=== PATIENT | female | born 1965 | race Caucasian/White ===

== ENCOUNTER 2019-07-02 14:09 | Outpatient (CLI) | payer OTHER, SELFPAY | END 2019-07-02 14:10 | disposition home or self-care (01) | LOC: CHSIMG 14:10 | PROVIDERS: PCP Internal Medicine; Visit Provider Internal Medicine | DX: I34.0 Nonrheumatic mitral (valve) insufficiency (principal) | CPT/HCPCS: 93306 ==

== ENCOUNTER 2019-12-08 07:27 | Outpatient (CLI) | payer OTHER, SELFPAY ==
[2019-12-08 07:39] LABS: Add Urine Microscopic? YES; Appearance Urine Sl Cloudy (Clear); Bilirubin Urine Negative (Negative); Blood Urine Negative (Negative); Color Urine Yellow (Yellow); Glucose Urine UA Negative (Negative); Ketones Urine Negative (Negative); Leukocyte Esterase Ur Negative (Negative); Nitrate Urine Positive (Negative); Protein Urine 1+ (Negative); Specific Grav Ur 1.025 (1.010-1.020); Urobilinogen Urine 0.2 mg/dL (0.2-1.0)
[2019-12-08 07:45] LABS: Bacteria Urine 4+ /hpf; RBC Urine None seen /hpf (0-2); Squamous Epithelial Cell Urine Few /hpf (Few); WBC Urine None seen /hpf (0-3)
[2019-12-08 07:47] LABS: Hemoglobin A1C 7.6 % (<5.7)
[2019-12-08 07:59] LABS: MALB Creatinine Ratio 115.7 mg/g (0-30); Microalbumin Urine Random 182.5 mg/L
[2019-12-08 08:55] LABS: Alanine Aminotransferase 40 U/L (14-59); Alkaline Phosphatase 42 U/L (46-116); Anion Gap 12.1 mmol/L (7-16); Aspartate Amino Transferase 23 U/L (15-37); Bilirubin,Total 0.6 mg/dL (0.00-1.00); Blood Urea Nitrogen 17 mg/dL (7-18); Calcium 9.4 mg/dL (8.5-10.1); Carbon Dioxide 30 mmol/L (21-32); Chloride 104 mmol/L (98-108); Cholesterol 156 mg/dL (0-200); Creatine Kinase 150 U/L (26-192); Estimated Glomerular Filt Rate > 60; Glucose 113 mg/dL (70-99); HDL Direct 38 mg/dL (40-60); LDL Cholesterol Calculated 82 mg/dL (<130); Osmolality Calculated 294 mOsm/kg (285-295); Potassium 5.1 mmol/L (3.5-5.1); Sodium 141 mmol/L (136-145); Total Protein 6.5 g/dL (6.4-8.2); Triglycerides 181 mg/dL (0-150)
[2019-12-12 10:29] LABS: Vitamin D 25 Hydroxy 19 ng/mL (30-100)
== END 2019-12-08 07:28 | disposition home or self-care (01) ==
LOC: CHSLAB 07:28
PROVIDERS: PCP Internal Medicine; Visit Provider Internal Medicine
DX: E78.2 Mixed hyperlipidemia (principal); E11.65 Type 2 diabetes mellitus with hyperglycemia; I10 Essential (primary) hypertension; M81.0 Age-related osteoporosis without current pathological fracture
CPT/HCPCS: 36415; 80053; 80061; 81001; 82043; 82306; 82550; 83036

== ENCOUNTER 2020-03-22 14:17 | Outpatient (CLI) | payer OTHER, SELFPAY ==
--- NOTE | ~2020-03-22 | MM_ITS ---
EXAMINATION: MM screening [facility] BI w hayder HISTORY: Screening TECHNIQUE: Craniocaudal and mediolateral oblique 3-D tomosynthesis images were obtained and synthetic 2-D images were generated. CAD analysis was submitted and interpreted. COMPARISON: No prior mammogram is available for comparison at this institution. Comparison to multipl e prior studies sequentially, with oldest reviewed study dated 10/23/2012. BREAST PARENCHYMAL COMPOSITION: There are scattered areas of fibroglandular density. FINDINGS: There is no evidence of suspicious mass, calcification, or architectural distortion to sugg est malignancy in either breast. There has been no suspicious interval change. IMPRESSION: 1. No mammographic evidence of malignancy. 2. Recommend routine screening mammography in one year. BI-RADS Category 1: Negative Reviewed, dictated and finalized at location A. OPERATOR
== END 2020-03-22 14:18 | disposition home or self-care (01) ==
LOC: CHSIMG 14:19
PROVIDERS: PCP Internal Medicine; Visit Provider Internal Medicine
DX: Z12.31 Encounter for screening mammogram for malignant neoplasm of breast (principal)
CPT/HCPCS: 77063; 77067

== ENCOUNTER 2020-06-06 07:28 | Outpatient (CLI) | payer OTHER, SELFPAY ==
[2020-06-06 07:51] LABS: Appearance Urine Clear (Clear); Bilirubin Urine 1+ (Negative); Color Urine Yellow (Yellow); Glucose Urine UA Negative (Negative); Ketones Urine Negative (Negative); Leukocyte Esterase Ur Negative LEU/UL (Negative); Nitrate Urine Negative (Negative); Protein Urine 2+ (Negative); Specific Grav Ur >= 1.030 (1.010-1.020); Urobilinogen Urine 0.2 mg/dL (0.2-1.0); pH Urine 5.5 (5.0-8.0)
[2020-06-06 07:56] LABS: Add Urine Microscopic? YES; Bacteria Urine Trace /hpf; Blood Urine Trace-Intact (Negative); Mucus Urine Few /lpf; RBC Urine 0-2 /hpf (0-2); Squamous Epithelial Cell Urine Few /hpf (Few); WBC Urine None seen /hpf (0-3)
[2020-06-06 08:10] LABS: MALB Creatinine Ratio 98.7 mg/g (0-30); Microalbumin Urine Random 378.8 mg/L
[2020-06-06 08:55] LABS: Alanine Aminotransferase 44 U/L (14-59); Albumin Level 4.1 g/dL (3.4-5.0); Alkaline Phosphatase 48 U/L (46-116); Anion Gap 3 mmol/L (8-16); Aspartate Amino Transferase 21 U/L (15-37); Bilirubin,Total 0.7 mg/dL (0.00-1.00); Blood Urea Nitrogen 15 mg/dL (7-18); Calcium 9.7 mg/dL (8.5-10.1); Carbon Dioxide 32 mmol/L (21-32); Chloride 104 mmol/L (98-108); Cholesterol 191 mg/dL (0-200); Creatine Kinase 121 U/L (26-192); Estimated Glomerular Filt Rate > 60; Glucose 86 mg/dL (70-99); HDL Direct 41 mg/dL (40-60); LDL Cholesterol Calculated 112 mg/dL (<130); Osmolality Calculated 287 mOsm/kg (285-295); Potassium 4.5 mmol/L (3.5-5.1); Sodium 139 mmol/L (136-145); Triglycerides 192 mg/dL (0-150)
[2020-06-09 12:47] LABS: Vitamin D 25 Hydroxy 13 ng/mL (30-100)
== END 2020-06-06 07:29 | disposition home or self-care (01) ==
LOC: CHSLAB 07:31
PROVIDERS: PCP Internal Medicine; Visit Provider Internal Medicine
DX: E11.65 Type 2 diabetes mellitus with hyperglycemia (principal); E78.5 Hyperlipidemia, unspecified; I10 Essential (primary) hypertension; E55.9 Vitamin D deficiency, unspecified
CPT/HCPCS: 36415; 80053; 80061; 81001; 82043; 82306; 82550; 83036

== ENCOUNTER 2020-07-29 15:01 | Outpatient (CLI) | payer OTHER, SELFPAY ==
--- NOTE | ~2020-07-29 | XR_ITS ---
XR_CERV2-3V_CR 07/29/2020 15:33 Indication: Neck pain. Pain in the trapezius muscles. Procedure: 3 views of the cervical spine Comparison: 01/21/2018 Findings: There is mild disc narrowing at C5-6 and C6-7. There is mild uncinate hypertrophy at C5-6 a nd C6-7. Lung apices are normal. No fracture or traumatic malalignment. No prevertebral soft tissue s welling. Odontoid process within normal limits. Impression: 1: Mild cervical spondylosis. Reviewed, dictated and finalized at location A. POWER DEVELOPER Impression: 1: Mild cervical spondylosis.
== END 2020-07-29 15:02 | disposition home or self-care (01) ==
LOC: CHSLAB 15:03
PROVIDERS: PCP Internal Medicine; Visit Provider Internal Medicine
DX: M54.2 Cervicalgia (principal)
CPT/HCPCS: 72040

== ENCOUNTER 2020-08-01 16:18 | Outpatient (CLI) | payer OTHER, SELFPAY ==
--- NOTE | ~2020-08-01 | XR_ITS ---
XR skull min 4V DATE: 08/01/2020 16:54 INDICATION: Sagittal suture deformity TECHNIQUE: 4 views COMPARISON: None FINDINGS: Normal sella turcica. No fracture or bone destruction of the cranial vault. Probable bilateral basal ganglia calcifications. Paranasal sinuses and mastoid air cells appear normally developed and aerated. IMPRESSION: Bilateral intracranial calcifications, likely basal ganglia in location. CT brain scan ca n help to confirm. Reviewed, dictated and finalized at location A. IMPRESSION: Bilateral intracranial calcifications, likely basal ganglia in loca tion. CT brain scan can help to confirm.
== END 2020-08-01 16:19 | disposition home or self-care (01) ==
LOC: CHSIMG 16:21
PROVIDERS: PCP Internal Medicine; Visit Provider Internal Medicine
DX: M95.2 Other acquired deformity of head (principal); M54.2 Cervicalgia
CPT/HCPCS: 70260

== ENCOUNTER 2020-08-03 09:02 | Outpatient (CLI) | payer OTHER, SELFPAY ==
--- NOTE | ~2020-08-03 | MR_ITS ---
EXAMINATION: MR cervical spine wo con DATE: 08/03/2020 10:45 INDICATION: Neck pain. TECHNIQUE: Magnetic resonance imaging (MRI) of the cervical spine was performed without intravenous c ontrast. Sequences included sagittal T2-weighted FSE, sagittal T2-weighted FS FSE, sagittal T1-weight ed FSE, axial MERGE, and axial T2-weighted FSE. COMPARISON: Cervical spine radiographs 07/29/2020 FINDINGS: There is 2 mm retrolisthesis of C5 on C6 and C6 on C7. Vertebral body heights are normal. T here is mildly decreased disc height at C5-C6 and moderately decreased disc height at C6-C7. The spin al cord signal intensity is normal. The following disc levels are specifically discussed: C2-C3: The disc does not extend beyond the endplate margin. There is no uncovertebral joint osteoarth ritis. There is moderate right and severe left facet joint osteoarthritis. There is mild left neural foraminal stenosis. There is no central canal stenosis. C3-C4: The disc does not extend beyond the endplate margin. There is no uncovertebral joint osteoarth ritis. There is mild bilateral facet joint osteoarthritis. There is no neural foraminal stenosis. The re is no central canal stenosis. C4-C5: The disc does not extend beyond the endplate margin. There is mild right and severe left uncov ertebral joint osteoarthritis. There is mild bilateral facet joint osteoarthritis. There is mild left neural foraminal stenosis. There is no central canal stenosis. C5-C6: The disc is bulging. There is severe bilateral uncovertebral joint osteoarthritis. There is no facet joint osteoarthritis. There is mild right and moderate left neural foraminal stenosis. There i s mild central canal stenosis. C6-C7: The disc is bulging. There is severe bilateral uncovertebral joint osteoarthritis. There is mi ld bilateral facet joint osteoarthritis. There is mild bilateral neural foraminal stenosis. There is mild central canal stenosis. C7-T1: The disc does not extend beyond the endplate margin. There is no uncovertebral joint osteoarth ritis. There is severe right and mild left facet joint osteoarthritis. There is mild right neural for aminal stenosis. There is no central canal stenosis. IMPRESSION: 1. Moderate cervical spondylosis. Reviewed, dictated and finalized at location A.
== END 2020-08-03 09:03 | disposition home or self-care (01) ==
LOC: CHSIMG 09:04
PROVIDERS: PCP Internal Medicine; Visit Provider Internal Medicine
DX: M54.2 Cervicalgia (principal)
CPT/HCPCS: 72141

== ENCOUNTER 2020-12-30 07:09 | Outpatient (CLI) | payer OTHER, SELFPAY ==
[2020-12-30 07:29] LABS: Add Urine Microscopic? YES; Appearance Urine Sl Cloudy (Clear); Bilirubin Urine Negative (Negative); Blood Urine Negative (Negative); Color Urine Yellow (Yellow); Glucose Urine UA 2+ (Negative); Ketones Urine Negative (Negative); Leukocyte Esterase Ur Negative LEU/UL (Negative); Nitrate Urine Positive (Negative); Protein Urine 1+ (Negative); Specific Grav Ur 1.025 (1.010-1.020); Urobilinogen Urine 0.2 mg/dL (0.2-1.0); pH Urine 5.5 (5.0-8.0)
[2020-12-30 07:35] LABS: Bacteria Urine 4+ /hpf; RBC Urine None seen /hpf (0-2); Squamous Epithelial Cell Urine Few /hpf (Few); WBC Urine 0-3 /hpf (0-3)
[2020-12-30 07:40] LABS: Hemoglobin A1C 7.7 % (<5.7)
[2020-12-30 07:45] LABS: Creatinine Urine 127.85 mg/dL (40-278)
[2020-12-30 07:47] LABS: MALB Creatinine Ratio 173.6 mg/g (0-30)
[2020-12-30 08:22] LABS: Alanine Aminotransferase 38 U/L (14-59); Albumin Level 4.1 g/dL (3.4-5.0); Alkaline Phosphatase 59 U/L (46-116); Anion Gap 8 mmol/L (8-16); Aspartate Amino Transferase 17 U/L (15-37); Bilirubin,Total 0.7 mg/dL (0.00-1.00); Blood Urea Nitrogen 21 mg/dL (7-18); Calcium 9.4 mg/dL (8.5-10.1); Carbon Dioxide 29 mmol/L (21-32); Chloride 106 mmol/L (98-108); Cholesterol 157 mg/dL (0-200); Creatine Kinase 106 U/L (26-192); Estimated Glomerular Filt Rate > 60; Glucose 141 mg/dL (70-99); HDL Direct 36 mg/dL (40-60); LDL Cholesterol Calculated 81 mg/dL (<130); Osmolality Calculated 301 mOsm/kg (285-295); Potassium 4.7 mmol/L (3.5-5.1); Sodium 143 mmol/L (136-145); Total Protein 7.1 g/dL (6.4-8.2); Triglycerides 198 mg/dL (0-150)
[2021-01-02 14:47] LABS: Vitamin D 25 Hydroxy 15 ng/mL (30-100)
== END 2020-12-30 07:10 | disposition home or self-care (01) ==
LOC: CHSLAB 07:11
PROVIDERS: PCP Internal Medicine; Visit Provider Internal Medicine
DX: E11.65 Type 2 diabetes mellitus with hyperglycemia (principal); E78.5 Hyperlipidemia, unspecified; I10 Essential (primary) hypertension; D50.9 Iron deficiency anemia, unspecified; R82.90 Unspecified abnormal findings in urine
CPT/HCPCS: 36415; 80053; 80061; 81001; 82043; 82306; 82550; 83036; 87077; 87086; 87088; 87186

== ENCOUNTER 2021-01-28 09:08 | Outpatient (CLI) | payer OTHER, SELFPAY ==
--- NOTE | ~2021-01-28 | MR_ITS ---
EXAMINATION: MR brain/brain stem wo/w con EXAM DATE: 01/28/2021 10:03 INDICATION: Headache. [place] that appears on head periodically. Skull deformity. TECHNIQUE: Magnetic resonance imaging (MRI) of the brain/brain stem obtained without contrast. Sagit stormy T1, axial diffusion, gradient echo (T2*), T1, T2, FLAIR sequences obtained. Patient was then inj ected with 10 cc intravenous Multihance contrast. Axial and coronal postcontrast T1 weighted sequence s obtained. There is no prior study for comparison. FINDINGS: There is symmetric signal abnormality in the caudate, basal ganglia and thalamus, with incr ease in T1 signal, susceptibility on gradient echo sequence. No edema or restricted diffusion within this. Most likely toxic/metabolic deposition etiology, could be calcium, copper or magnesium. Some po ssible underlying etiologies include parathyroid disorder (hypoparathyroidism), Enoch disease, liver failure. There are no areas of restricted diffusion to suggest acute infarction. There is no acute hemorrhage seen on the T2*, a hemosiderin sensitive sequence. No intraparenchymal brain mass. The ventricles a re normal in size. There are no extra-axial collections. Flow voids are seen in the cerebral arteri es on the T2-weighted sequences consistent with their expected patency. The orbits are unremarkable. Soft tissue is unremarkable. IMPRESSION: Symmetric abnormal signal in the caudate, basal ganglia, thalami. Some differential consi derations above. No acute findings. Reviewed, dictated and finalized at location A. IMPRESSION: Symmetric abnormal signal in the caudate, basal ganglia, thalami. S ome differential considerations above. No acute findings.
== END 2021-01-28 09:09 | disposition home or self-care (01) ==
LOC: CHSIMG 09:10
PROVIDERS: PCP Internal Medicine; Visit Provider Internal Medicine
DX: R51.9 Headache, unspecified (principal)
CPT/HCPCS: 70553; A9577

== ENCOUNTER 2021-02-02 11:17 | Outpatient (CLI) | payer OTHER, SELFPAY ==
[2021-02-02 11:38] LABS: Basophils Absolute Auto 0.05 K/mm3 (0.00-0.10); Basophils Percent Auto 0.8 % (0.0-1.0); Eosinophils Absolute Auto 0.19 K/mm3 (0.02-0.50); Eosinophils Percent Auto 3.2 % (1.0-6.0); Hematocrit 45.6 % (35.0-49.0); Hemoglobin 15.4 g/dL (12.0-15.0); Immature Granulocyte Absolute 0.01 K/mm3 (0.00-0.00); Immature Granulocyte Percent A 0.2 % (0.0-0.0); Lymphocytes Absolute Auto 2.47 K/mm3 (1.10-4.50); Mean Corpuscular HGB Conc 33.8 g/dL (32.0-36.0); Mean Corpuscular Hemoglobin 30.2 pg (27.0-31.0); Mean Corpuscular Volume 89.4 fL (78.0-102.0); Mean Platelet Volume 9.7 fl (9.2-11.8); Monocytes Absolute Auto 0.38 K/mm3 (0.10-0.90); Monocytes Percent Auto 6.3 % (2.0-11.0); Neutrophils Absolute Auto 2.9 K/mm3 (1.7-7.2); Neutrophils Percent Auto 48.5 % (50.0-70.0); Platelet Count Result 221 K/mm3 (150-420); Red Cell Distribution Width 12.2 % (11.6-14.4)
[2021-02-02 12:38] LABS: Erythrocyte Sedimentation Rate 8 mm/hr (0-20)
[2021-02-02 13:05] LABS: Free T4 Free Thyroxine 0.76 ng/dL (0.76-1.46); Magnesium 1.5 mg/dL (1.8-2.4); Thyroid Stimulating Hormone 1.01 uIU/mL (0.36-3.74)
[2021-02-02 13:08] LABS: CRP < 0.2 mg/dL (0.0-0.9)
[2021-02-05 01:18] LABS: Ionized Calcium 5.2 mg/dL (4.8-5.6)
[2021-02-05 13:32] LABS: Ceruloplasmin 28 mg/dL (18-53)
[2021-02-06 19:16] LABS: Parathyroid Intact 50 pg/mL (14-64)
== END 2021-02-02 11:18 | disposition home or self-care (01) ==
LOC: CHSLAB 11:18
PROVIDERS: PCP Internal Medicine; Visit Provider Internal Medicine
DX: R51.9 Headache, unspecified (principal); R93.0 Abnormal findings on diagnostic imaging of skull and head, not elsewhere classified
CPT/HCPCS: 36415; 82330; 82390; 82525; 83735; 83970; 84439; 84443; 84481; 85025; 85652; 86038; 86140

== ENCOUNTER 2021-03-24 14:15 | Outpatient (CLI) | payer OTHER, SELFPAY ==
--- NOTE | ~2021-03-24 | MM_ITS ---
EXAMINATION: MM screening [facility] BI w hayder HISTORY: Screening TECHNIQUE: Craniocaudal and mediolateral oblique 3-D tomosynthesis images were obtained and synthetic 2-D images were generated. CAD analysis was submitted and interpreted. COMPARISON: Comparison to multiple prior studies sequentially, with oldest reviewed study dated 10/2012. BREAST PARENCHYMAL COMPOSITION: There are scattered areas of fibroglandular density. FINDINGS: There is no evidence of suspicious mass, calcification, or architectural distortion to sugg est malignancy in either breast. There has been no suspicious interval change. IMPRESSION: 1. No mammographic evidence of malignancy. 2. Recommend routine screening mammography in one year. BI-RADS Category 1: Negative Reviewed, dictated and finalized at location A.
== END 2021-03-24 14:16 | disposition home or self-care (01) ==
LOC: CHSIMG 14:15
PROVIDERS: PCP Internal Medicine; Visit Provider Internal Medicine
DX: Z12.31 Encounter for screening mammogram for malignant neoplasm of breast (principal)
CPT/HCPCS: 77063; 77067

== ENCOUNTER 2021-07-07 07:54 | Outpatient (CLI) | payer OTHER, SELFPAY ==
[2021-07-07 08:09] LABS: Basophils Absolute Auto 0.06 K/mm3 (0.00-0.10); Basophils Percent Auto 1.1 % (0.0-1.0); Eosinophils Absolute Auto 0.17 K/mm3 (0.02-0.50); Eosinophils Percent Auto 3.1 % (1.0-6.0); Hematocrit 39.8 % (35.0-49.0); Hemoglobin 13.7 g/dL (12.0-15.0); Immature Granulocyte Absolute 0.02 K/mm3 (0.00-0.00); Immature Granulocyte Percent A 0.4 % (0.0-0.0); Lymphocytes Percent Auto 40.1 % (18.0-42.0); Mean Corpuscular HGB Conc 34.4 g/dL (32.0-36.0); Mean Corpuscular Hemoglobin 30.4 pg (27.0-31.0); Mean Corpuscular Volume 88.2 fL (78.0-102.0); Mean Platelet Volume 9.6 fl (9.2-11.8); Monocytes Absolute Auto 0.47 K/mm3 (0.10-0.90); Monocytes Percent Auto 8.6 % (2.0-11.0); Neutrophils Absolute Auto 2.6 K/mm3 (1.7-7.2); Neutrophils Percent Auto 46.7 % (50.0-70.0); Platelet Count Result 227 K/mm3 (150-420); Red Blood Count 4.51 M/mm3 (4.20-5.40); Red Cell Distribution Width 12.3 % (11.6-14.4); White Blood Count 5.5 K/mm3 (4.8-10.8)
[2021-07-07 08:24] LABS: Hemoglobin A1C 8.4 % (<5.7)
[2021-07-07 08:41] LABS: Alanine Aminotransferase 82 U/L (14-59); Alkaline Phosphatase 50 U/L (46-116); Anion Gap 6 mmol/L (8-16); Aspartate Amino Transferase 39 U/L (15-37); Bilirubin,Total 0.6 mg/dL (0.00-1.00); Blood Urea Nitrogen 15 mg/dL (7-18); Calcium 9.5 mg/dL (8.5-10.1); Carbon Dioxide 31 mmol/L (21-32); Chloride 101 mmol/L (98-108); Cholesterol 126 mg/dL (0-200); Creatine Kinase 129 U/L (26-192); Estimated Glomerular Filt Rate > 60; Glucose 165 mg/dL (70-99); HDL Direct 40 mg/dL (40-60); LDL Cholesterol Calculated 59 mg/dL (<130); Osmolality Calculated 290 mOsm/kg (285-295); Potassium 4.9 mmol/L (3.5-5.1); Sodium 138 mmol/L (136-145); Total Protein 6.7 g/dL (6.4-8.2); Triglycerides 137 mg/dL (0-150)
[2021-07-07 08:52] LABS: Creatinine Urine 19.11 mg/dL (40-278); MALB Creatinine Ratio 267.9 mg/g (0-30); Microalbumin Urine Random 51.2 mg/L
[2021-07-07 08:54] LABS: Add Urine Microscopic? YES; Appearance Urine Clear (Clear); Bilirubin Urine Negative (Negative); Blood Urine Trace-Intact (Negative); Color Urine Light Yellow (Yellow); Glucose Urine UA Negative (Negative); Ketones Urine Negative (Negative); Leukocyte Esterase Ur Trace LEU/UL (Negative); Nitrate Urine Negative (Negative); Protein Urine Negative (Negative); Specific Grav Ur <= 1.005 (1.010-1.020); Squamous Epithelial Cell Urine Rare /hpf (Few); Urobilinogen Urine 0.2 mg/dL (0.2-1.0); pH Urine 5.5 (5.0-8.0)
[2021-07-07 08:55] LABS: Bacteria Urine 1+ /hpf
[2021-07-12 13:46] LABS: Vitamin D 25 Hydroxy 64 ng/mL (30-100)
== END 2021-07-07 07:55 | disposition home or self-care (01) ==
LOC: CHSLAB 07:56
PROVIDERS: PCP Internal Medicine; Visit Provider Internal Medicine
DX: E78.5 Hyperlipidemia, unspecified (principal); I10 Essential (primary) hypertension; E11.65 Type 2 diabetes mellitus with hyperglycemia; N39.0 Urinary tract infection, site not specified; E55.9 Vitamin D deficiency, unspecified
CPT/HCPCS: 36415; 80053; 80061; 81001; 82043; 82306; 82550; 83036; 85025

== ENCOUNTER 2021-08-16 13:07 | Outpatient (CLI) | payer OTHER, SELFPAY ==
--- NOTE | ~2021-08-16 | XR_ITS ---
XR sinus min 3V DATE: 08/16/2021 13:29 INDICATION: Recurrent sinus infections. Pain and pressure over the sinuses. TECHNIQUE: inés Jhaveri, submental vertical and lateral views COMPARISON: None FINDINGS: The paranasal sinuses are normally developed and aerated. The mastoid air cells appear norm al. IMPRESSION: No significant abnormality Reviewed, dictated and finalized at location A. IMPRESSION: No significant abnormality
== END 2021-08-16 13:08 | disposition home or self-care (01) ==
LOC: CHSIMG 13:09
PROVIDERS: PCP Internal Medicine; Visit Provider Nurse Practitioner Family
DX: J32.9 Chronic sinusitis, unspecified (principal)
CPT/HCPCS: 70220

== ENCOUNTER 2021-11-16 14:44 | Outpatient (CLI) | payer OTHER, SELFPAY ==
--- NOTE | ~2021-11-16 | US_ITS ---
EXAMINATION: US carotid duplex BI DATE: 11/16/2021 15:24 INDICATION: Carotid stenosis TECHNIQUE: Grayscale, color Doppler, and pulsed Doppler images of the cervical carotid arteries were obtained. The degree of vessel stenosis is placed in one of the following categories: normal, <50%, 5 0-69%, >=70% but less than near-occlusion, near-occlusion, or total occlusion. Note that percent sten osis relative to normal distal artery lumen diameter is indirectly measured from velocity measurement s as described by Nic, et al. Radiology 2003; 229:340-346. Notes: Normal: Peak systolic velocity <125 centimeters/sec and no plaque <50%. Peak systolic velocity <125 ( EDV <40; ICA/CCA PSV ratio <2.0; used these factors only a tandem lesions or low cardiac output or co ntralateral disease) 50-69 %: PSV 125-230 (EDV 40-100; ratio 2-4) >= 70% but less than near occlusion: PSV greater than 230 (EDV > 100; ratio> 4.0) Near Occlusion: PSV that is variable; markedly narrowed lumen Occlusion: Absent flow on color/spectral Doppler and no lumen on howell scale. COMPARISON: None. FINDINGS: RIGHT: The right common carotid artery (CCA) peak systolic velocity (PSV) is 86 cm/s. The right internal car otid artery (ICA) PSV is 100 cm/s. The right ICA end-diastolic velocity (EDV) is 50 cm/s. The right I CA/CCA PSV ratio is 1.2. The external carotid artery (ECA) PSV is 88 cm/s. There is antegrade flow in the right vertebral artery. LEFT: The left CCA PSV is 97 cm/s. The left ICA PSV is 132 cm/s. The left ICA EDV is 59 cm/s. The left ICA/ CCA PSV ratio is 1.4. The ECA PSV is 74 cm/s. There is antegrade flow in the left vertebral artery. IMPRESSION: 1. Less than 50% stenosis in the right internal carotid artery by sonographic criteria. 2. 50-69% stenosis in the left internal carotid artery by sonographic criteria. Reviewed, dictated and finalized at location A. IMPRESSION: 1. Less than 50% stenosis in the right internal carotid artery by sonographic c lingeria. 2. 50-69% stenosis in the left internal carotid artery by sonographic criteria.
== END 2021-11-16 14:45 | disposition home or self-care (01) ==
LOC: CHSIMG 14:45
PROVIDERS: PCP Internal Medicine; Visit Provider Internal Medicine
DX: I65.29 Occlusion and stenosis of unspecified carotid artery (principal)
CPT/HCPCS: 93880

== ENCOUNTER 2022-02-20 07:20 | Outpatient (CLI) | payer OTHER, SELFPAY ==
[2022-02-20 07:40] LABS: Add Urine Microscopic? YES; Appearance Urine Clear (Clear); Basophils Absolute Auto 0.04 K/mm3 (0.00-0.10); Basophils Percent Auto 0.6 % (0.0-1.0); Bilirubin Urine Negative (Negative); Blood Urine Negative (Negative); Color Urine Yellow (Yellow); Eosinophils Absolute Auto 0.22 K/mm3 (0.02-0.50); Eosinophils Percent Auto 3.5 % (1.0-6.0); Glucose Urine UA 1+ (Negative); Hematocrit 42.9 % (35.0-49.0); Immature Granulocyte Absolute 0.03 K/mm3 (0.00-0.00); Immature Granulocyte Percent A 0.5 % (0.0-0.0); Ketones Urine Negative (Negative); Leukocyte Esterase Ur Negative LEU/UL (Negative); Lymphocytes Absolute Auto 2.43 K/mm3 (1.10-4.50); Lymphocytes Percent Auto 38.4 % (18.0-42.0); Mean Corpuscular HGB Conc 32.6 g/dL (32.0-36.0); Mean Corpuscular Hemoglobin 29.6 pg (27.0-31.0); Mean Corpuscular Volume 90.7 fL (78.0-102.0); Mean Platelet Volume 9.7 fl (9.2-11.8); Monocytes Absolute Auto 0.53 K/mm3 (0.10-0.90); Monocytes Percent Auto 8.4 % (2.0-11.0); Neutrophils Absolute Auto 3.1 K/mm3 (1.7-7.2); Neutrophils Percent Auto 48.6 % (50.0-70.0); Nitrate Urine Positive (Negative); Platelet Count Result 218 K/mm3 (150-420); Protein Urine Trace (Negative); Red Blood Count 4.73 M/mm3 (4.20-5.40); Red Cell Distribution Width 13.2 % (11.6-14.4); Specific Grav Ur 1.025 (1.010-1.020); Urobilinogen Urine 0.2 mg/dL (0.2-1.0); White Blood Count 6.3 K/mm3 (4.8-10.8)
[2022-02-20 08:08] LABS: Bacteria Urine 3+ /hpf; RBC Urine None seen /hpf (0-2); Squamous Epithelial Cell Urine Moderate /hpf (Few); WBC Urine 0-3 /hpf (0-3)
[2022-02-20 08:25] LABS: Hemoglobin A1C 7.5 % (<5.7)
[2022-02-20 08:30] LABS: Creatinine Urine 137.22 mg/dL (40-278)
[2022-02-20 08:35] LABS: MALB Creatinine Ratio 105.7 mg/g (0-30); Microalbumin Urine Random 145.1 mg/L
[2022-02-20 08:43] LABS: Alanine Aminotransferase 44 U/L (14-59); Alkaline Phosphatase 56 U/L (46-116); Anion Gap 6 mmol/L (8-16); Aspartate Amino Transferase 17 U/L (15-37); Bilirubin,Total 0.7 mg/dL (0.00-1.00); Blood Urea Nitrogen 21 mg/dL (7-18); Calcium 9.7 mg/dL (8.5-10.1); Carbon Dioxide 30 mmol/L (21-32); Chloride 102 mmol/L (98-108); Cholesterol 156 mg/dL (0-200); Creatine Kinase 130 U/L (26-192); Estimated Glomerular Filt Rate > 60; Glucose 269 mg/dL (70-99); HDL Direct 39 mg/dL (40-60); LDL Cholesterol Calculated 76 mg/dL (<130); Osmolality Calculated 298 mOsm/kg (285-295); Potassium 5.4 mmol/L (3.5-5.1); Sodium 138 mmol/L (136-145); Total Protein 6.5 g/dL (6.4-8.2); Triglycerides 207 mg/dL (0-150)
== END 2022-02-20 07:21 | disposition home or self-care (01) ==
LOC: CHSLAB 07:23
PROVIDERS: PCP Internal Medicine; Visit Provider Internal Medicine
DX: E78.2 Mixed hyperlipidemia (principal); I10 Essential (primary) hypertension; N39.0 Urinary tract infection, site not specified; E11.65 Type 2 diabetes mellitus with hyperglycemia
CPT/HCPCS: 36415; 80053; 80061; 81001; 82043; 82550; 83036; 85025; 87077; 87086; 87088; 87186

== ENCOUNTER 2022-03-06 15:34 | Outpatient (CLI) | payer OTHER, SELFPAY ==
[2022-03-06 15:45] LABS: Add Urine Microscopic? NO; Appearance Urine Clear (Clear); Bilirubin Urine Negative (Negative); Blood Urine Negative (Negative); Color Urine Yellow (Yellow); Glucose Urine UA Negative (Negative); Ketones Urine Negative (Negative); Leukocyte Esterase Ur Negative LEU/UL (Negative); Nitrate Urine Negative (Negative); Protein Urine Negative (Negative); Urobilinogen Urine 0.2 mg/dL (0.2-1.0)
== END 2022-03-06 15:35 | disposition home or self-care (01) ==
LOC: CHSLAB 15:36
PROVIDERS: PCP Internal Medicine; Visit Provider Internal Medicine
DX: N39.0 Urinary tract infection, site not specified (principal)
CPT/HCPCS: 81003

== ENCOUNTER 2022-05-03 12:38 | Outpatient (CLI) | payer OTHER, SELFPAY ==
--- NOTE | ~2022-05-03 | US_ITS ---
EXAMINATION: US carotid duplex BI DATE: 05/03/2022 13:21 INDICATION: Carotid stenosis TECHNIQUE: Grayscale, color Doppler, and pulsed Doppler images of the cervical carotid arteries were obtained. The degree of vessel stenosis is placed in one of the following categories: normal, <50%, 5 0-69%, >=70% but less than near-occlusion, near-occlusion, or total occlusion. Note that percent sten osis relative to normal distal artery lumen diameter is indirectly measured from velocity measurement s as described by Nic, et al. Radiology 2003; 229:340-346. COMPARISON: None. FINDINGS: RIGHT: The right common carotid artery (CCA) peak systolic velocity (PSV) is 83 cm/s. The right internal car otid artery (ICA) PSV is 89 cm/s. The right ICA end-diastolic velocity (EDV) is 44 cm/s. The right IC A/CCA PSV ratio is 1.1. Grayscale and color Doppler images yield an estimate of <50% diameter reducti on from plaque in the ICA. The external carotid artery (ECA) PSV is 92 cm/s. There is antegrade flow in the right vertebral artery. LEFT: The left CCA PSV is 89 cm/s. The left ICA PSV is 86 cm/s. The left ICA EDV is 39 cm/s. The left ICA/C CA PSV ratio is 1.0. Grayscale and color Doppler images yield an estimate of <50% diameter reduction from plaque in the ICA. The ECA PSV is 75 cm/s. There is antegrade flow in the left vertebral artery. IMPRESSION: 1. <50% stenosis in the right internal carotid artery. 2. <50% stenosis in the left internal carotid artery. Reviewed, dictated and finalized at location A. OGICAL PLANT OPERATOR
--- NOTE | ~2022-05-03 | MM_ITS ---
EXAMINATION: MM screening [facility]uz [facility] BI w hayder HISTORY: Screening TECHNIQUE: Craniocaudal and mediolateral oblique 3-D tomosynthesis images were obtained and synthetic 2-D images were generated. CAD analysis was submitted and interpreted. COMPARISON: Comparison to multiple prior studies sequentially, with oldest reviewed study dated 10/2012. BREAST PARENCHYMAL COMPOSITION: There are scattered areas of fibroglandular density. FINDINGS: There is no evidence of suspicious mass, calcification, or architectural distortion to sugg est malignancy in either breast. There has been no suspicious interval change. IMPRESSION: 1. No mammographic evidence of malignancy. 2. Recommend routine screening mammography in one year. BI-RADS Category 1: Negative Reviewed, dictated and finalized at location B. ERADICATOR
== END 2022-05-03 12:39 | disposition home or self-care (01) ==
LOC: CHSIMG 12:40
PROVIDERS: PCP Internal Medicine; Visit Provider Internal Medicine
DX: I65.23 Occlusion and stenosis of bilateral carotid arteries (principal); Z12.31 Encounter for screening mammogram for malignant neoplasm of breast
CPT/HCPCS: 77063; 77067; 93880

== ENCOUNTER 2022-05-07 13:14 | Outpatient (CLI) | payer OTHER, SELFPAY ==
--- NOTE | ~2022-05-07 | CT_ITS ---
EXAMINATION: CT lung screening DATE: 05/07/2022 13:34 INDICATION: history of nicotine dependence TECHNIQUE: Computed tomography (CT) of the chest was performed without intravenous contrast. Addition al 3D reconstructions utilizing coronal maximum intensity projection (MIP) were performed. Automated exposure control and iterative reconstruction technique were employed. The dose-length product was 14 6.64 mGy-cm. COMPARISON: None FINDINGS: 2 mm left upper lobe nodule on image 27 and a couple 1 mm nodules at the left apex on images 10 and 1 2. No pneumonia, pulmonary edema or pleural effusion. Heart size is normal. Small amount of atheroscl erotic coronary artery calcific location. No pericardial effusion. Thoracic aorta is normal in calibe r. No pathologically enlarged thoracic lymphadenopathy. Diffuse hepatic steatosis. Multiple calcified gallstones in the decompressed gallbladder. 1.4 cm low-attenuation left adrenal adenoma. Mild thorac ic spondylosis. IMPRESSION: 1. Lung-RADS category 2: Benign appearance or behavior. Continue annual screening with noncontrast lo w-dose chest CT in 12 months. 2. Cholelithiasis. 3. Diffuse hepatic steatosis. Reviewed, dictated and finalized at location B. T PUMPER IMPRESSION: 1. Lung-RADS category 2: Benign appearance or behavior. Continue annual screeni ng with noncontrast low-dose chest CT in 12 months. 2. Cholelithiasis. 3. Diffuse hepatic steatosis.
== END 2022-05-07 13:15 | disposition home or self-care (01) ==
LOC: CHSIMG 13:17
PROVIDERS: PCP Internal Medicine; Visit Provider Internal Medicine
DX: Z12.2 Encounter for screening for malignant neoplasm of respiratory organs (principal); Z87.891 Personal history of nicotine dependence; K80.20 Calculus of gallbladder without cholecystitis without obstruction; K76.0 Fatty (change of) liver, not elsewhere classified
CPT/HCPCS: 71271

== ENCOUNTER 2022-05-28 16:20 | Outpatient (CLI) | payer OTHER, BC, SELFPAY ==
--- NOTE | ~2022-05-28 | XR_ITS ---
EXAMINATION: XR lumbar spine 2-3V DATE: 05/28/2022 16:43 INDICATION: Low back pain TECHNIQUE: Anteroposterior and lateral views of the lumbar spine, and cone-down lateral view of the l umbosacral junction were obtained. COMPARISON: None. FINDINGS: Bone alignment is normal. There is no fracture. The vertebral body heights are maintained. There is mild loss of intervertebral disc space height at L4-5 and L5-S1. Mild facet joint osteoarthr itis is noted at L5-S1. Small degenerative osteophytes project from the anterior endplates of multipl e vertebral bodies. Calcified atherosclerosis of the aorta is noted. There are multiple phleboliths o f the pelvis. IMPRESSION: 1. Mild lumbar spondylosis without acute findings. Reviewed, dictated and finalized at location L. EILLANCE SUPERVISOR
== END 2022-05-28 16:21 | disposition home or self-care (01) ==
LOC: CHSIMG 16:24
PROVIDERS: PCP Internal Medicine; Visit Provider Internal Medicine
DX: M54.50 Low back pain, unspecified (principal); M43.06 Spondylolysis, lumbar region
CPT/HCPCS: 72100

== ENCOUNTER 2022-06-02 10:53 | Outpatient (CLI) | payer BC, OTHER, SELFPAY ==
--- NOTE | ~2022-06-02 | MR_ITS ---
MRI of the lumbar spine Clinical History: Back pain Technique: Axial T2-weighted images, and sagittal T1-weighted, T2-weighted, and T2 fat-sat images wer e acquired. Findings: There is no fracture or subluxation of the lumbar spine. Vertebral bodies maintain normal h eight and line. No bone marrow signal abnormality identified. No disc bulge or herniation seen at any lumbar level. There are minimal facet joint degenerative lew ges. No spinal canal stenosis or neural foraminal narrowing at any lumbar level. Paravertebral soft tissues are unremarkable. Impression: Minimal facet joint degenerative changes, otherwise unremarkable exam. Reviewed, dictated and finalized at location . MANAGER Impression: Minimal facet joint degenerative changes, otherwise unremarkable exam.
== END 2022-06-02 10:54 | disposition home or self-care (01) ==
LOC: CHSIMG 10:55
PROVIDERS: PCP Internal Medicine; Visit Provider Internal Medicine
DX: M54.50 Low back pain, unspecified (principal)
CPT/HCPCS: 72148

== ENCOUNTER 2022-06-28 08:50 | Outpatient (CLI) | payer BC, OTHER, SELFPAY ==
--- NOTE | 2022-06-28 11:00 | NEURO_ITS ---
Impression: # Insulin dependent diabetic complains of lower extremity pain and difficulties walking. 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 # Needle/EMG exam reveals early neurogenic changes. # Clinical correlation recommended. Motor Nerve Conduction Lower Extremities Peroneal Nerve Conduction Velocity (m/sec) Terminal Latency (msec) Response Voltage(mV) Popliteal space-Ankle Ankle Extensor Dig Brevis Popliteal space Ankle Right 40 4.8 2 2 Left 43 4.7 1 1 Tibial Nerve Conduction Velocity (m/sec) Terminal Latency (msec) Response Voltage(mV) Popliteal space-Ankle Ankle-Extensor Dig Brevis Popliteal space Ankle Right 40 5.0 2 3 Left 40 4.8 1 1 F-waves Peroneal Nerve (ms) Tibial Nerve (ms) Right 58.4 59.5 Left 60.5 61.4 Sensory Nerve Conduction Lower Extremities Sural Nerve Stimulation Terminal Latency (msec) Ankle Response Voltage (uV) Ankle Response Velocity (m/sec) Right 4.7 21 34 Left 4.6 13 35 Superficial Peroneal Nerve Stimulation Terminal Latency (msec) Ankle Response Voltage (uV) Ankle Response Velocity (m/sec) Right 56 4 29 Left 4.1 14 39 Left Right Muscles Examined Fibrillation Fasciculation Scarcity Voltage Duration Left Right Left Right Left Right Left Right Left Right X X Ant Tibialis Reduced Reduced Incr Incr >12ms >12ms X X Gastroc X X Fibularis Long X X Flex Dig Long X X Ext Dig Brev Reduced Reduced Incr Incr >12ms >12ms Abd Hallucis X X Quadriceps Reduced Reduced Incr Incr >12ms >12ms Paraspinals MTDD
== END 2022-06-28 08:51 | disposition home or self-care (01) ==
LOC: ANHNEURO 08:52
PROVIDERS: PCP Internal Medicine; Visit Provider Internal Medicine
DX: G62.9 Polyneuropathy, unspecified (principal); R94.131 Abnormal electromyogram [EMG]
CPT/HCPCS: 95886; 95910

== ENCOUNTER 2023-07-03 14:46 | Outpatient (CLI) | payer OTHER, SELFPAY ==
--- NOTE | ~2023-07-03 | MM_ITS ---
EXAMINATION: MM screening [facility] BI w hayder HISTORY: Screening mammogram TECHNIQUE: Craniocaudal and mediolateral oblique 3-D tomosynthesis images were obtained and synthetic 2-D images were generated. CAD analysis was submitted and interpreted. COMPARISON: 05/03/2022, 03/24/2021, 03/22/2020 BREAST PARENCHYMAL COMPOSITION: There are scattered areas of fibroglandular density. FINDINGS: No suspicious mass, calcification, or architectural distortion are identified in either brad ast to suggest malignancy. There has been no suspicious interval change. IMPRESSION: 1. No mammographic evidence of malignancy. 2. Recommend routine screening mammography in one year. BI-RADS Category 1: Negative Reviewed, dictated and finalized at location A. CE SUPPORT
== END 2023-07-03 14:47 | disposition home or self-care (01) ==
LOC: CHSIMG 14:47
PROVIDERS: PCP Internal Medicine; Visit Provider Internal Medicine
DX: Z12.31 Encounter for screening mammogram for malignant neoplasm of breast (principal)
CPT/HCPCS: 77063; 77067

== ENCOUNTER 2023-08-09 15:32 | Outpatient (CLI) | payer OTHER, SELFPAY ==
--- NOTE | ~2023-08-09 | XR_ITS ---
XR elbow LT min 3V DATE: 08/09/2023 16:03 INDICATION: Medial left elbow pain for one month TECHNIQUE: 3 views COMPARISON: None FINDINGS: No fracture or dislocation or joint effusion, periosteal reaction or bone destruction. IMPRESSION: No significant abnormality Reviewed, dictated and finalized at location B. IMPRESSION: No significant abnormality
--- NOTE | ~2023-08-09 | CT_ITS ---
EXAMINATION: CT lung screening DATE: 08/09/2023 16:02 INDICATION: Personal history of nicotine dependence TECHNIQUE: Computed tomography (CT) of the chest was performed without intravenous contrast. The dose -length product was 129.75 mGy-cm. Automated exposure control and iterative reconstruction technique were employed. COMPARISON: CT dated 05/07/2022 FINDINGS: Heart size normal. No significant pleural or pericardial effusion. There are gallstones. No thoracic lymphadenopathy. Mild atherosclerosis. Stable low-density left adrenal mass measuring 1.5 c m, consistent with adenoma. No endobronchial lesions. Stable small upper lobe nodules measuring 2 mm or less. No focal airspace consolidation. No endobronchial lesions. No pneumothorax. No focal lytic o r blastic lesions. No acute osseous abnormality. IMPRESSION: 1. Lung-RADS category 2: Benign appearance or behavior. Continue annual screening with noncontrast lo w-dose chest CT in 12 months. Reviewed, dictated and finalized at location A. IMPRESSION: 1. Lung-RADS category 2: Benign appearance or behavior. Continue annual screeni ng with noncontrast low-dose chest CT in 12 months.
== END 2023-08-09 15:33 | disposition home or self-care (01) ==
LOC: CHSIMG 15:34
PROVIDERS: PCP Internal Medicine; Visit Provider Internal Medicine
DX: Z12.2 Encounter for screening for malignant neoplasm of respiratory organs (principal); Z87.891 Personal history of nicotine dependence; M25.522 Pain in left elbow
CPT/HCPCS: 71271; 73080

== ENCOUNTER 2023-08-29 07:20 | Outpatient (CLI) | payer OTHER, SELFPAY ==
--- NOTE | ~2023-08-29 | US_ITS ---
EXAMINATION: US carotid duplex BI DATE: 08/29/2023 08:13 INDICATION: Carotid stenosis. TECHNIQUE: Grayscale, color Doppler, and pulsed Doppler images of the cervical carotid arteries were obtained. The degree of vessel stenosis is placed in one of the following categories: normal, <50%, 5 0-69%, >=70% but less than near-occlusion, near-occlusion, or total occlusion. Note that percent sten osis relative to normal distal artery lumen diameter is indirectly measured from velocity measurement s as described by Nic, et al. Radiology 2003; 229:340-346. COMPARISON: None. FINDINGS: RIGHT: The right common carotid artery (CCA) peak systolic velocity (PSV) is 99 cm/s. The right internal car otid artery (ICA) PSV is 116 cm/s. The right ICA end-diastolic velocity (EDV) is 61 cm/s. The right I CA/CCA PSV ratio is 1.2. Grayscale and color Doppler images yield an estimate of <50% diameter reduct ion from plaque in the ICA. There is antegrade flow in the right vertebral artery. LEFT: The left CCA PSV is 100 cm/s. The left ICA PSV is 119 cm/s. The left ICA EDV is 50 cm/s. The left ICA /CCA PSV ratio is 1.2. Grayscale and color Doppler images yield an estimate of <50% diameter reductio n from plaque in the ICA. There is antegrade flow in the left vertebral artery. IMPRESSION: 1. <50% stenosis in the right internal carotid artery. 2. <50% stenosis in the left internal carotid artery. Reviewed, dictated and finalized at location A.
--- NOTE | ~2023-08-29 | DEXA_ITS ---
? Bone Density Report? Name:? JOHNSON MILTON Patient ID:??? [id number] Age:? 57 Sex:? Female Ethnicity:? White Date of : 1965 Indication: postmenopausal; screening for osteoporosis; height loss; hysterectomy; Referring Provider: Elizabeth Jacobson Study: Bone densitometry was performed. Exam Date: August 29, 2023 Accession number: [id number] Bone Density: Region? BMD??? T-score? Z-score ??Classification AP Spine(L1-L4)? 1.139??? 0.8?2.0? Normal Femoral Neck (Left)? 0.935??? 0.8? 1.9? Normal Total Hip (Left)? 0.981??? 0.3? 1.1? Normal Femoral Neck (Right)? 0.911??? 0.6? 1.7? Normal Total Hip (Right)? 0.987??? 0.4? 1.1? Normal Femoral Neck Mean? 0.923??? 0.7? 1.8? Normal Total Hip Mean? 0.984??? 0.3? 1.1? Normal World Health Organization criteria for BMD impression classify patients as: Normal (T-score at or above -1.0), Osteopenia (T-score between -1.0 and -2.5), or Osteoporosis (T-score at or below -2.5). 10-year Fracture Risk: FRAX not reported because: ? All T-scores for Spine Total, Hip Total, Femoral Neck at or above -1.0 Clinical Information Provided by Patient: Smokes Has the following medical conditions: Hysterectomy Patient maximum height was 67 Menopause Age: 51 No regular weight bearing exercise Drinks caffeinated beverages Onset of menses at age 13 Number of children 2 Impression: The patient has normal bone mass. The patient has risk factors, including: smoking. Discussion: BONE DENSITY IS ABOVE THE MINIMUM DESIRABLE LEVEL AT ALL SKELETAL SITES TESTED. This patient?s bone mineral density is above the minimum desirable level (T- score -1.0 or better) at all sites measured. The patient should follow a healthful lifestyle (good nutrition with adequate calcium and vitamin D, and appropriate weight-bearing exercise). Follow-Up: Consider repeating this study in 5 years or sooner if there is some new clinical indication. Reported by: Dr. Román Major on :04:00 AM. RISA
--- NOTE | ~2023-08-29 | US_ITS ---
Limited Abdominal Sonogram: Real-time sonographic imaging of the right upper quadrant was performed. Clinical History: Abnormal liver enzymes Findings: The liver appears echogenic, with no evidence of mass lesion or bile duct dilatation. Main portal vein demonstrates normal direction of flow. The gallbladder is well distended, and demonstrat es echogenic stones near the gallbladder neck. No gallbladder wall thickening. The common bile duct m easures 6 mm. The visualized pancreas, aorta, and IVC are unremarkable. Impression: Diffuse fatty infiltration of liver. Cholelithiasis. Reviewed, dictated and finalized at location M. Impression: Diffuse fatty infiltration of liver. Cholelithiasis.
== END 2023-08-29 07:21 | disposition home or self-care (01) ==
LOC: CHSIMG 07:22
PROVIDERS: PCP Internal Medicine; Visit Provider Internal Medicine
DX: M81.0 Age-related osteoporosis without current pathological fracture (principal); I65.23 Occlusion and stenosis of bilateral carotid arteries; R74.01 Elevation of levels of liver transaminase levels; K76.0 Fatty (change of) liver, not elsewhere classified; K80.20 Calculus of gallbladder without cholecystitis without obstruction
CPT/HCPCS: 76705; 77080; 93880

== ENCOUNTER 2024-06-09 07:32 | Outpatient (CLI) | payer OTHER, SELFPAY ==
[2024-06-09 07:44] LABS: Add Urine Microscopic? YES; Bilirubin Urine Negative (Negative); Blood Urine Negative (Negative); Color Urine Light Yellow (Yellow); Glucose Urine UA Negative (Negative); Ketones Urine Negative (Negative); Leukocyte Esterase Ur Trace (Negative); Nitrate Urine Positive (Negative); Protein Urine Negative (Negative); Urobilinogen Urine 0.2 mg/dL (0.2-1.0)
[2024-06-09 07:50] LABS: Appearance Urine Sl Cloudy (Clear); Bacteria Urine 3+ /hpf; RBC Urine None seen /hpf (0-2); Squamous Epithelial Cell Urine Moderate /hpf (Few); WBC Urine 0-3 /hpf (0-3)
[2024-06-09 07:51] LABS: Creatinine Urine 104.19 mg/dL (40-278); MALB Creatinine Ratio 35.1 mg/g (0-30); Microalbumin Urine Random 36.6 mg/L
[2024-06-09 07:53] LABS: Hemoglobin A1C 6.4 % (<5.7)
[2024-06-09 08:24] LABS: Alanine Aminotransferase 39 U/L (14-59); Albumin Level 4.3 g/dL (3.4-5.0); Alkaline Phosphatase 57 U/L (46-116); Anion Gap 9 mmol/L (4-12); Aspartate Amino Transferase 22 U/L (15-37); Bilirubin,Total 0.9 mg/dL (0.00-1.00); Blood Urea Nitrogen 16 mg/dL (7-18); Calcium 10.1 mg/dL (8.5-10.1); Carbon Dioxide 30 mmol/L (21-32); Chloride 102 mmol/L (98-108); Cholesterol 155 mg/dL (0-200); Creatine Kinase 75 U/L (26-192); Estimated Glomerular Filt Rate > 60; Glucose 138 mg/dL (70-99); HDL Direct 54 mg/dL (40-60); LDL Cholesterol Calculated 80 mg/dL (<130); Osmolality Calculated 295 mOsm/kg (285-295); Potassium 4.5 mmol/L (3.5-5.1); Sodium 141 mmol/L (136-145); Total Protein 6.6 g/dL (6.4-8.2); Triglycerides 103 mg/dL (0-150)
== END 2024-06-09 07:33 | disposition home or self-care (01) ==
LOC: CHSLAB 07:33
PROVIDERS: PCP Internal Medicine; Visit Provider Internal Medicine
DX: E11.65 Type 2 diabetes mellitus with hyperglycemia (principal); E78.2 Mixed hyperlipidemia
CPT/HCPCS: 36415; 80053; 80061; 81001; 82043; 82550; 83036

== ENCOUNTER 2024-07-06 14:21 | Outpatient (CLI) | payer OTHER, SELFPAY ==
--- NOTE | ~2024-07-06 | MM_ITS ---
EXAMINATION: MM screening [facility] BI w hayder HISTORY: Screening TECHNIQUE: Craniocaudal and mediolateral oblique 3-D tomosynthesis images were obtained and synthetic 2-D images were generated. CAD analysis was submitted and interpreted. COMPARISON: Comparison to multiple prior studies sequentially, with oldest reviewed study dated 11/27. BREAST PARENCHYMAL COMPOSITION: Not dense: There are scattered areas of fibroglandular density. FINDINGS: There is pleomorphic cluster of calcifications in the upper outer quadrant of the right brad ast, posterior third. The left breast is stable without evidence for malignancy. IMPRESSION: 1. Pleomorphic cluster of right breast calcifications, upper outer quadrant, posterior third. 2. Magnification views are recommended. BI-RADS Category 0: Incomplete: Needs additional imaging evaluation. Reviewed, dictated and finalized at location B. NG CARRIER IMPRESSION: 1. Pleomorphic cluster of right breast calcifications, upper outer quadrant, po sterior third. 2. Magnification views are recommended. BI-RADS Category 0: Incomplete: Needs additional imaging evaluation.
--- OUTSIDE RECORDS SUMMARY | 2024-07-06 17:08 | XMS_ITS | Clinical Summary ---
Author Organization [facility] Address [address] [place] [address] Care Team Providers Care Clay Maker Name Role Phone Jose Llanos MD, Rajneesh S MD Primary Care Provider [phone] Allergies No known active allergies Medications metFORMIN 500 MG 24 hr tablet Take 500 mg by mouth daily with breakfast. Active insulin lispro 100 UNIT/ML injection (PEN) Inject 25 Units into the skin 3 (three) times daily before meals. Active lisinopril 2.5 MG tablet Take 2.5 mg by mouth daily. Active insulin detemir 100 UNIT/ML flextouch PEN Inject 50 Units into the skin nightly at bedtime. Active aspirin EC (ASPIRIN) 81 MG EC tablet Take 81 mg by mouth nightly at bedtime. Active celecoxib 200 MG capsule 08/25/2020 Active cyclobenzaprine 10 MG tablet 06/04/2021 Active Magnesium 500 MG Cap Take 1 capsule by mouth daily. Active Ergocalciferol (VITAMIN D OR) Take 250 mcg by mouth daily. Active rosuvastatin (CRESTOR) 10 MG tablet Take 1 tablet (10 mg total) by mouth nightly at bedtime. 90 tablet 3 01/23/2022 Active clopidogrel (PLAVIX) 75 MG tablet TAKE 1 TABLET DAILY 30 tablet 10/16/2022 Active Active Problems Problem Noted Date Diagnosed Date Stenosis of left subclavian artery 07/29/2021 Hyperlipidemia 08/03/2019 Bilateral carotid artery disease 11/25/2017 Diabetes ([facility]) HTN (hypertension) COPD (chronic obstructive pu lmonary disease) ([facility]) Depression Anxiety GERD (gastroesophageal reflux disease) History of tobacco abuse Resolved Problems Problem Noted Date Diagnosed Date Resolved Date Palpitations 11/25/2017 11/25/2017 Family History Medical History Relation Comments Heart Disease Father Cancer Mother Coronary artery disease Sister Diabetes Sister Relation Status Comments Father Mother Sister Alive Social History Tobacco Use Types Packs/Day Years Used Date Smoking Tobacco: Former Cigarettes 1 30 0 06/03/1991 - 06/03/2021 Smokeless Tobacco: Never Alcohol Use Standard Drinks/Week Comments Yes 0 (1 standard drink = 0.6 oz pur e alcohol) occasional Comments Unknown Sex and Gender Information Value Date Recorded Sex Assigned at Not on file Legal Sex Female 9:30 AM CDT Gender Identity Not on file Sexual Orientation Not on file 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 Not on file Not on file Last Filed Vital Signs Vital Sign Reading Time Taken Comments Blood Pressure 116/69 06/29/2021 1:46 PM HAND STAMPER Pulse 93 06/29/2021 1:46 PM HAND STAMPER Temperature - - Respiratory Rate 18 06/29/2021 1:46 PM HAND STAMPER Oxygen Saturation 97% 06/29/2021 1:46 PM HAND STAMPER Inhaled Oxygen Concentration - - Weight 83.7 kg (184 lb 9.6 oz) 06/29/2021 1:46 P M HAND STAMPER Height 170.2 cm (5' 7 ) 06/29/2021 1:46 PM HAND STAMPER Body Mass Index 28.91 06/29/2021 1:46 PM HAND STAMPER Plan of Treatment Health Maintenance Due Date Last Done Comments ASCVD Statin 1965 Colorectal Cancer Screening Colonoscopy (10 Years) 1966 Kidney Health Evaluation 1966 Annual Physical 1969 Diabetes: Retinopathy Eye Exam 1984 Hepatitis C 1984 DTaP, Tdap and Td Vaccines ( 1 - Tdap) 1985 Hepatitis B Vaccines (1 of 3 - 19+ 3-dose series) 1985 Mammogram Screening 2006 Pneumococcal Vaccine: Pediatrics (0 to 5 Years) and At-Risk Patients (6 to 64 Years) (2 of 2 - PPSV23 or PCV20) 04/13/2015 02/16/2015 Hemoglobin A1C 12/09/2019 06/10/2019 Zoster Vaccines (2 of 2) 02/09/2020 12/15/2019 ASCVD LDL 06/10/2020 06/10/2019, 10/28/2017 Lipid Panel 06/10/2020 06/10/2019 COVID-19 Vaccine (1 - 2023-2 5 season) 2024 Influenza Adult (#1) 2024 Meningococcal B Vaccine Aged Out No l onger eligible based on patient's age to complete this topic Meningococcal Vaccine Aged Out No ke merly eligible based on patient's age to complete this topic RSV Immunizations Under 20 Months Aged Out No longer eligible b ased on patient's age to complete this topic Procedures Procedure Name Priority Date/Time Associated Diagnosis Comments LIPID PANEL Routine 06/10/2019 HEMOGLOBIN, GLYCOSYLATED Routine 06/10/2019 from Last 3 Months or Most Recently Relevant to Health Maintenance Results * HEMOGLOBIN, GLYCOSYLATED (06/10/2019) HGB A1C 7.3 06/10/2019 us Doc [facility] Final Result * LIPID PANEL (06/10/2019) CHOLESTEROL 159 HDL 43 TRIGLYCERIDES 143 LDL (CALCULATED) 87 06/10/2019 us Doc [facility] Final Result from Last 3 Months or Most Recently Relevant to Health Maintenance Insurance [facility] Care Teams Clay Maker Relationship Specialty Start Date End Date Elizabeth Jacobson MD [address] [place] [address] PCP - General INTERNAL MEDICINE 09/06/20 Jose Llanos MD [employer] Mechanic CARDIOVASCULAR DISEASE 10/16/17
--- OUTSIDE RECORDS SUMMARY | 2024-07-06 17:08 | XMS_ITS | Clinical Summary ---
Author Organization [facility] Address [address] [place] [address] Care Team Providers Care Certified Ophthalmic Technologist Name Role Phone Elizabeth Jacobson MD Primary Care Provider [phone] Allergies No known active allergies Medications aspirin 81 mg enteric coated tablet Take 1 tablet (81 mg total) by mouth daily Active celecoxib (CeleBREX) 200 mg capsule Take 1 capsule (200 mg total) by mouth 1 Active clopidogreL (PLAVIX) 75 mg tablet Take 1 tablet (75 mg total) by mouth daily 3 Active gabapentin (NEURONTIN) 100 mg capsule Take 1 capsule (100 mg total) by mouth 3 Active insulin detemir (LEVEMIR) 100 unit/mL (3 mL) pen for injection Inject 50 Units under the skin daily Active lisinopriL (PRINIVIL,ZESTR IL) 2.5 mg tablet Take 1 tablet (2.5 mg total) by mouth daily Active metFORMIN (GLUCOPHAGE) 500 mg tablet Take 1 tablet (500 mg total) by mouth 4 Active rosuvastatin (CRESTOR) 10 mg tablet Take 1 tablet (10 mg total) by mouth 3 Active Ozempic 0.25 mg or 0.5 mg (2 mg/3 mL) pen injector injection 2 mg by abdominal subcutaneous route 3 Active Active Problems Problem Noted Date Diagnosed Date Bilateral sciatica 11/05/2022 Social History Tobacco Use Types Packs/Day Years Used Date Smoking Tobacco: Never Assessed Comments No Sex and Gender Information Value Date Recorded Sex Assigned at Not on file 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 Gender Identity Not on file Sexual Orientation Not on file Obstetrics History Last Filed Vital Signs Vital Sign Reading Time Taken Comments Blood Pressure 102/68 11/05/2022 1:35 PM CDT Pulse 94 11/05/2022 1:35 PM CDT Temperature - - Respiratory Rate 18 11/05/2022 1:35 PM CDT Oxygen Saturation 97% 11/05/2022 1:35 PM CDT Inhaled Oxygen Concentration - - Weight 75.3 kg (166 lb) 11/05/2022 1:35 PM CDT Height 170.2 cm (5' 7 ) 11/05/2022 1:35 PM CDT Body Mass Index 26 11/05/2022 1:35 PM CDT Plan of Treatment Health Maintenance Due Date Last Done Comments Breast Cancer Screening-Mammogram 1965 Cervical Cancer Screening 1966 Colon Cancer Screening-Colonoscopy 1966 Depression Screening 1966 Hepatitis C Screening 1966 Hepatitis B Screening 1984 Regular Well Visit/Exam 18-64 1984 DTaP/Tdap/Td Vaccine (2 - Td or Tdap) 07/18/2022 07/18/2012 Covid-19 Vaccine (3 - 2023-2 5 season) 2024 07/12/2020, 05/31/2020 Influenza Vaccine (#1) 2024 01/30/2016, 2014 Pneumococcal vaccine <65 (3 of 3 - PCV20 or PCV21) 06/20/2025 06/20/2020, 02/16/2015, 03/19/2013, Additional history exists Zoster Vaccine Completed 03/18/2020, 12/15/2019 Insurance [facility] Care Teams Certified Ophthalmic Technologist Relationship Specialty Start Date End Date Elizabeth Jacobson MD [address] [place] [address] PCP - General Internal Medicine 03/08/21
--- OUTSIDE RECORDS SUMMARY | 2024-07-06 17:08 | XMS_ITS | Continuity of Care Document ---
Author Organization [facility] Address [address] [place] [address] Phone Care Team Providers Care Cake Cutter Machine Name Role Phone Guy Watkins Unavailable Unavailable Procedures Procedure Date Office/outpatient Visit, Est Office/outpatient Visit, Est Office/outpatient Visit, Est Eye Exam, New Patient Advance Directives Directive Yes / No Effective Date File Name No Information Encounters Encounter Description Practice Location Reason(s) For Visit Diagnoses Date Provider Providers Copied on Encounter [place] [facility] [place] [address] [place] [address] [address], [place], [place], [id number], tel:[phone] [facility] No Information Nov-1 0-200 8 Doisy Edward. [address], [place], [place], [facility], . tel:[phone] Office/[place]pat ient [place], [facility] [place] [address], [place], [place], [id number], tel:[phone] [facility] No Information Nov-0 7-200 8 Nunes OD Mk. [address], [place], [place], [facility], . tel:[phone] Office[place]pat ient [place] [facility] [place] [address] [place] [address] [address], [place], [place], [id number], tel:[phone] [facility] No Information Nov-0 6-200 8 Krishnasamy Andrea. [address], [facility], . tel:[phone] [facility], [address], [place], [place], [id number], tel:[phone] [facility] No Information Nov-0 5-200 8 Krishnasamy Andrea. [address], [facility], . tel:[phone] Referring Provider: Elizabeth Jacobson MD, [address] [place] [address], [address]. tel:[phone] Family History Family Member Type Diagnosis Age At Onset No Information Payers Payer name Insurance type Covered constitution party ID pantera villa(s) [facility] Commercial CI [id number] Social History Type Description Quantity Date Captured [...]
--- OUTSIDE RECORDS SUMMARY | 2024-07-06 17:08 | XMS_ITS | Referral Summary ---
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 Care Teams Proof Press Operator Relationship Specialty Start Date End Date Elizabeth Jacobson MD [address] [place] [address] PCP - General Internal Medicine 03/08/21
== END 2024-07-06 14:22 | disposition home or self-care (01) ==
LOC: CHSIMG 14:23
PROVIDERS: PCP Internal Medicine; Visit Provider Internal Medicine
DX: Z12.31 Encounter for screening mammogram for malignant neoplasm of breast (principal); R92.8 Other abnormal and inconclusive findings on diagnostic imaging of breast
CPT/HCPCS: 77063; 77067

== ENCOUNTER 2024-07-10 09:32 | Outpatient (CLI) | payer OTHER, SELFPAY ==
--- NOTE | ~2024-07-10 | MM_ITS ---
EXAMINATION: MM diagnostic luz maria RT w hayder HISTORY: Follow-up right breast calcifications TECHNIQUE: Additional 3-D tomosynthesis images of the right breast were performed and synthetic 2-D i mages were generated. CAD analysis was submitted and interpreted. COMPARISON: Comparison to multiple prior studies sequentially, with oldest reviewed study dated 11/28. BREAST PARENCHYMAL COMPOSITION: Not dense: There are scattered areas of fibroglandular density. FINDINGS: There is a pleomorphic cluster of indeterminate calcifications in the upper outer quadrant of the right breast, posterior third. There are no suspicious masses or architectural distortion. IMPRESSION: 1. Pleomorphic cluster of right breast calcifications in the upper outer quadrant. 2. Stereotactic right breast biopsy recommended. BI-RADS category 4, suspicious findings. Reviewed, dictated and finalized at location L. [employer] [employer]ICE ENGINEER IMPRESSION: 1. Pleomorphic cluster of right breast calcifications in the upper outer quadra nt. 2. Stereotactic right breast biopsy recommended. BI-RADS category 4, suspicious findings.
--- OUTSIDE RECORDS SUMMARY | 2024-07-10 10:13 | XMS_ITS | Continuity of Care Document ---
Author Organization [facility] Address [address] [place] [address] Phone Care Team Providers Care Float Nurse Name Role Phone Guy Watkins Unavailable Unavailable Procedures Procedure Date Office/outpatient Visit, Est Office/outpatient Visit, Est Office/outpatient Visit, Est Eye Exam, New Patient Advance Directives Directive Yes / No Effective Date File Name No Information Encounters Encounter Description Practice Location Reason(s) For Visit Diagnoses Date Provider Providers Copied on Encounter Office/outpat ient Visit, [facility], [address] [place] [address] [address], [place], [place], [id number], tel:[phone] [facility] No Information Nov-1 0-200 8 Doisy Edward. [address], [place], [place], [facility], . tel:[phone] Office/outpat ient Visit, [facility], [address], [place], [place], [id number], tel:[phone] [facility] No Information Nov-0 7-200 8 Nunes OD Mk. [address], [place], [place], [facility], . tel:[phone] Office/outpat ient Visit, [facility], [address] [place] [address] [address], [place], [place], [id number], tel:[phone] [facility] No Information Nov-0 6-200 8 Krishnasamy Andrea. [address], [facility], . tel:[phone] [facility], [address], [place], [place], [id number], tel:[phone] [facility] No Information Nov-0 5-200 8 Krishnasamy Andrea. [address], [facility], . tel:[phone] Referring Provider: Elizabeth Jacobson MD, [address] [place] [address], [address]. tel:[phone] Family History Family Member Type Diagnosis Age At Onset No Information Payers Payer name Insurance type Covered libertarian ID pantera villa(s) [facility] Commercial CI [id number] Social History Type Description Quantity Date Captured [...]
--- OUTSIDE RECORDS SUMMARY | 2024-07-10 10:13 | XMS_ITS | Clinical Summary ---
Author Organization [facility] Address [address] [place] [address] Care Team Providers Care Lead Business Analyst Name Role Phone Jose Llanos MD, Rajneesh S MD Primary Care Provider [phone] Allergies No known active allergies Medications metFORMIN [...] 08/03/2019 Bilateral carotid artery disease 11/25/2017 Diabetes ([facility]) HTN (hypertension) COPD (chronic obstructive pu lmonary disease) ([facility]) Depression Anxiety GERD (gastroesophageal reflux disease) History [...] Start Date 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 on file Not on file Last Filed Vital Signs Vital Sign Reading Time Taken Comments Blood Pressure 116/69 06/29/2021 1:46 PM PORT TRAFFIC MANAGER Pulse 93 06/29/2021 1:46 PM PORT TRAFFIC MANAGER Temperature - - Respiratory Rate 18 06/29/2021 1:46 PM PORT TRAFFIC MANAGER Oxygen Saturation 97% 06/29/2021 1:46 PM PORT TRAFFIC MANAGER Inhaled Oxygen Concentration - - Weight 83.7 kg (184 lb 9.6 oz) 06/29/2021 1:46 P M PORT TRAFFIC MANAGER Height 170.2 cm (5' 7 ) 06/29/2021 1:46 PM PORT TRAFFIC MANAGER Body Mass Index 28.91 06/29/2021 1:46 PM PORT TRAFFIC MANAGER Plan of Treatment Health Maintenance Due Date [...] Most Recently Relevant to Health Maintenance Insurance [facility] Care Teams Lead Business Analyst Relationship Specialty Start Date End Date Elizabeth Jacobson MD [address] [place] [address] PCP - General INTERNAL MEDICINE 09/06/20 Jose Llanos MD [place] Irrigator CARDIOVASCULAR DISEASE 10/16/17
--- OUTSIDE RECORDS SUMMARY | 2024-07-10 10:13 | XMS_ITS | Referral Summary ---
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
--- OUTSIDE RECORDS SUMMARY | 2024-07-10 10:13 | XMS_ITS | Clinical Summary ---
Author Organization [facility] Address [address] [place] [id number] Care Team Providers Care Land Examiner Name Role Phone Elizabeth Jacobson MD Primary [...] on file Legal Sex Female 12:52 AM PAYMENT MANAGER Gender Identity Not on file Sexual Orientation [...] exists Zoster Vaccine Completed 03/18/2020, 12/15/2019 Insurance [facility] CHOICE PLUS [facility] Care Teams Land Examiner Relationship Specialty Start Date End Date Elizabeth Jacobson MD [address] [place] [address] PCP - General Internal Medicine 03/08/21
== END 2024-07-10 09:33 | disposition home or self-care (01) ==
PROVIDERS: PCP Internal Medicine; Visit Provider Internal Medicine
DX: R92.8 Other abnormal and inconclusive findings on diagnostic imaging of breast (principal)
CPT/HCPCS: 77061; 77065; G0279

== ENCOUNTER 2024-08-10 14:59 | Outpatient (CLI) | payer OTHER, SELFPAY ==
--- NOTE | ~2024-08-10 | CT_ITS ---
EXAMINATION: CT lung screening DATE: 08/10/2024 15:17 INDICATION: SMOKER SCREENING-CURRENT, NO COMPLAINTS TECHNIQUE: Computed tomography (CT) of the chest was performed without intravenous contrast. Addition al 3D reconstructions utilizing coronal maximum intensity projection (MIP) were performed. Automated exposure control and iterative reconstruction technique were employed. The dose-length product was 63 .85 mGy-cm. COMPARISON: 08/09/2023 FINDINGS: Mild emphysema. Again seen are a few 2 mm or smaller nodules in the upper lungs. No larger, new or en larging pulmonary nodules identified. No pneumonia, pulmonary edema or pleural effusion. Heart size i s normal. No pericardial effusion. Small amount of atherosclerotic coronary artery calcium. Thoracic aorta is normal in caliber. No pathologically enlarged thoracic lymphadenopathy. No significant bowles e in approximately 1.5 similar low-attenuation left adrenal adenoma. Multiple calcified gallstones wi thin the decompressed gallbladder. Mild thoracic spondylosis. IMPRESSION: 1. . Lung-RADS category 2: Benign appearance or behavior. Continue annual screening with noncontrast low-dose chest CT in 12 months. 2. Cholelithiasis. Reviewed, dictated and finalized at location B. IMPRESSION: 1. . Lung-RADS category 2: Benign appearance or behavior. Continue annual scree giselle with noncontrast low-dose chest CT in 12 months. 2. Cholelithiasis.
--- OUTSIDE RECORDS SUMMARY | 2024-08-10 17:23 | XMS_ITS | Referral Summary ---
Author Organization [facility] Address [address] [place] [id number] Care Team Providers Care Block Setter Gypsum Name Role Phone Elizabeth Jacobson MD Primary Care Provider Encounters Date Type Department Care Team Description 07/30/2024 Telephone [facility] Advanced Medicine Breast [facility] ([facility]) [address] [place] [phone] Scarlet Alexander RN Test Results (Right breast biopsy path results from 07/29/24) 07/30/2024 Telephone [facility] ([facility]) [address] [place] [phone] Scarlet Alexander RN Test Results (Right breast biopsy path results from 07/29/24) 07/29/2024 11:30 AM CDT - 07/29/2024 11:59 PM CDT Hospital Encounter [facility] ([facility]) [address] [place] [phone] Abnormal mammogram Discharge Disposition: Discharge to home or self care 07/29/2024 10:35 AM CDT - 07/29/2024 11:59 PM CDT Hospital Encounter [facility] ([facility]) [address] [place] [phone] Abnormal mammogram Discharge Disposition: Discharge to home or self care 07/29/2024 8:00 AM CDT Office Visit [facility] [address] [place] [address] Alison Landeros NP Abnormal mammogram (Primary Dx); Mass of upper outer quadrant of right breast; Heterogeneously dense tissue of both breasts on mammography 07/23/2024 Telephone [facility] ([facility]) [address] [place] [phone] Clarice Gramajo RN 07/23/2024 Orders Only [facility] [address] [place] [address] 5 [place] [address] Alison Landeros NP 07/22/2024 5:51 PM HAIRSPRING II INSPECTOR - 07/22/2024 11:59 PM HAIRSPRING II INSPECTOR Hospital Encounter [facility] ([facility]) [address] [place] [phone] Calcification of right breast on mammography Discharge Disposition: Discharge to home or self care 07/22/2024 Orders Only [facility] [address] [place] [address] 5 [place] [address] Alison Landeros NP Calcification of right breast on mammography (Primary Dx) 07/17/2024 Orders Only [facility] [address] [place] [address] 8 [place] [address] Alison Landeros NP Abnormal mammogram (Primary Dx) 07/10/2024 - 07/10/2024 11:59 PM HAIRSPRING II INSPECTOR Hospital Encounter [facility] ([facility]) [address] [place] [phone] Discharge Disposition: Discharge to home or self care 07/06/2024 - 07/06/2024 11:59 PM HAIRSPRING II INSPECTOR Hospital Encounter [facility] ([facility]) [address] [place] [phone] Discharge Disposition: Discharge to home or self care from Last 3 Months Allergies No known active allergies Medications aspirin 81 mg enteric coated tablet Take 1 tablet (81 mg total) by mouth daily Active celecoxib (CeleBREX) 200 mg capsule Take 1 capsule (200 mg total) by mouth 04/08/202 1 Active clopidogreL (PLAVIX) 75 mg tablet [...] mg by abdominal subcutaneous route 3 Active cyclobenzaprine (FLEXERIL) 10 mg tablet TAKE 1 TABLET DAILY AT BEDTIME NEEDED 5 Active atorvastatin (LIPITOR) 10 mg tablet Take 1 tablet (10 mg total) by mouth daily 4 Active Active Problems Problem Noted Date Diagnosed Date Anxiety 07/29/2024 COPD (chronic obstructive pulmonary disease) 04/2025 Depression 07/29/2024 GERD (gastroesophageal reflux disease) 5 Bilateral sciatica 11/05/2022 Stenosis of left subclavian artery 07/29/2021 Hyperlipidemia 08/03/2019 Bilateral carotid artery disease 11/25/2017 Tobacco dependence syndrome 02/01/2014 Diabetes mellitus 11/09/2013 Primary hypertension 11/09/2013 Resolved Problems Problem Noted Date Diagnosed Date Resolved Date Chest pain 11/09/2013 07/29/2024 Social History Tobacco Use Types Packs/Day Years Used Date Smoking Tobacco: Every Day Cigarettes Tobacco Cessation:Ready to Q uit: Not Asked; Counseling Given: Not Answered Comments No Sex and Gender Information Value Date Recorded Sex Assigned at Not on file Legal Sex Female 12:52 AM HAIRSPRING II INSPECTOR Gender Identity Not on file Sexual Orientation Not on file Last Filed Vital Signs Vital Sign Reading Time Taken Comments Blood Pressure 118/77 07/29/2024 8:03 AM CDT Pulse 80 07/29/2024 8:03 AM CDT Temperature - - Respiratory Rate 18 07/29/2024 8:03 AM CDT Oxygen Saturation 97% 07/29/2024 8:03 AM CDT Inhaled Oxygen Concentration - - Weight 56.4 kg (124 lb 4.8 oz) 07/29/2024 8:00 A M CDT Height 169 cm (5' 6.54 ) 07/29/2024 8:00 AM CDT Body Mass Index 19.74 07/29/2024 8:00 AM CDT Plan of Treatment Not on file Medical Devices Implanted Type Area Felt Cutter Device Identifier Shelf Expiration Date Model / Serial / Lot [employer] [facility] [employer] Rigid End Hourglass Marker Breast Biopsy Titanium [id number] -[id number] - [id number] Implanted:Qty: 1 on 07/29/2024 by Nic Gay MD at [facility] [employer] [id number] 11/03/2025 TRIMARK-EV [id number]-[id number] / / [id number] Procedures Procedure Name Priority Date/Time Associated Diagnosis Comments SUMAN POST CLIP PLACEMENT RIGHT Schedule Routine, Read Routine (OP Routine) 07/29/2024 11:40 AM CDT Abnormal mammogram STEREOTACTIC BREAST BIOPSY RIGHT Schedule Routine, Read Routine (OP Routine) 07/29/2024 11:27 AM CDT Abnormal mammogram SURGICAL PATHOLOGY Routine 07/29/2024 11 :24 AM CDT Abnormal mammogram BREAST IMAGING MG DIAGNOSTIC OUTSIDE CONSULT Routine 07/22/2024 5:52 PM HAIRSPRING II INSPECTOR Calcification of right breast on mammography BREAST IMAGING MG DIAGNOSTIC OUTSIDE REFERENCE Routine 07/10/2024 12:00 AM HAIRSPRING II INSPECTOR Calcification of right breast on mammography BREAST IMAGING MG SCREENING OUTSIDE REFERENCE Routine 07/06/2024 12:00 AM HAIRSPRING II INSPECTOR from Last 3 Months Results * Suman Post Clip Placement Right (07/29/2024 11:40 AM CDT) Anatomical Region Laterality Modality Breast Right Mammography 07/29/2024 11:4 2 AM CDT Addenda Addendum by Jeaneth Whaley MD on 07/31/2024 4:54 PM CDT ADDENDUM: Pathology from biopsy of the right breast showed fibroadenoma with associated calcifications; please refer to pathology report for details. Pathology is benign and concordant. Normal interval screening mammography is recommended. Results and recommendations will be discussed with the patient by [facility] or referring provider staff and will be separately documented in the medical record. Electronically signed by: Jeaneth Whaley M.D. Impressions 07/29/2024 11:57 AM CDT Successful vacuum-assisted core needle biopsy of the RIGHT breast. Pathology is pending. ASSESSMENT: Post Procedure Mammograms for Marker Placement Dictated by: Nic Gay MD The radiology attending physician has personally reviewed this study, and had reviewed and/or edited this written report and agrees with it. Electronically signed by: Jeaneth Whaley M.D. Narrative 07/29/2024 11:57 AM CDT EXAMINATION: RIGHT STEREOTACTIC BREAST VACUUM-ASSISTED CORE BIOPSY UTILIZING TOMOSYNTHESIS AND STEREOTACTIC GUIDANCE, PLACEMENT OF A BIOPSY SITE TISSUE MARKER CLIP, AND RIGHT FULL FIELD DIGITAL MAMMOGRAM WITH DIGITAL BREAST TOMOSYNTHESIS HISTORY: Abnormal mammogram. 58-year-old female with screening detected grouped calcifications within the upper outer right breast. Image guided core needle biopsy is requested to evaluate for malignancy. COMPARISON: 07/06/2024, 07/10/2024 BREAST PARENCHYMAL COMPOSITION: The breasts are heterogeneously dense, which may obscure small masses. PROCEDURE AND FINDINGS: The risks and potential benefits of the procedures were discussed with the patient and written informed consent was obtained. After a time-out procedure, the patient was placed in the prone position on the biopsy unit. The area of interest was localized and targeted utilizing digital imaging with tomosynthesis and stereotaxis. After sterile preparation of the skin, 1% lidocaine was utilized for local anesthesia. A small skin incision was made with a #11 scalpel blade and a 9 gauge Brevera vacuum-assisted biopsy needle was advanced to the area of interest from a lateral approach utilizing stereotactic guidance. A total of 3 tissue cores were then obtained; these were submitted to surgical pathology in formalin for histologic analysis. The specimen radiograph demonstrates that the calcifications of interest are included within the tissue cores. A TriMark Hourglass tissue marker clip was placed at the biopsy site. The needle was removed, hemostasis was achieved, and Dermabond was applied. There was no evidence of significant immediate complication. The patient was given verbal as well as written post procedural instructions prior to release from the department. A two-view RIGHT digital mammogram with digital breast tomosynthesis post procedure demonstrates that the tissue marker clip is in the expected position. The attending radiologist, Dr. Jeaneth Whaley M.D., was present throughout the entire procedure. Dr. Nic Gay (diagnostic vice president [employer]) also participated in this examination. Procedure Note Jeaneth Whaley MD - 07/29/2024 EXAMINATION: RIGHT STEREOTACTIC BREAST VACUUM-ASSISTED CORE BIOPSY UTILIZING TOMOSYNTHESIS AND STEREOTACTIC GUIDANCE, PLACEMENT OF A BIOPSY SITE TISSUE MARKER CLIP, AND RIGHT FULL FIELD DIGITAL MAMMOGRAM WITH DIGITAL BREAST TOMOSYNTHESIS HISTORY: Abnormal mammogram. 58-year-old female with screening detected grouped calcifications within the upper outer right breast. Image guided core needle biopsy is requested to evaluate for malignancy. COMPARISON: 07/06/2024, 07/10/2024 BREAST PARENCHYMAL COMPOSITION: The breasts are heterogeneously dense, which may obscure small masses. PROCEDURE AND FINDINGS: The risks and potential benefits of the procedures were discussed with the patient and written informed consent was obtained. After a time-out procedure, the patient was placed in the prone position on the biopsy unit. The area of interest was localized and targeted utilizing digital imaging with tomosynthesis and stereotaxis. After sterile preparation of the skin, 1% lidocaine was utilized for local anesthesia. A small skin incision was made with a #11 scalpel blade and a 9 gauge Brevera vacuum-assisted biopsy needle was advanced to the area of interest from a lateral approach utilizing stereotactic guidance. A total of 3 tissue cores were then obtained; these were submitted to surgical pathology in formalin for histologic analysis. The specimen radiograph demonstrates that the calcifications of interest are included within the tissue cores. A TriMark Hourglass tissue marker clip was placed at the biopsy site. The needle was removed, hemostasis was achieved, and Dermabond was applied. There was no evidence of significant immediate complication. The patient was given verbal as well as written post procedural instructions prior to release from the department. A two-view RIGHT digital mammogram with digital breast tomosynthesis post procedure demonstrates that the tissue marker clip is in the expected position. The attending radiologist, Dr. Jeaneth Whaley M.D., was present throughout the entire procedure. Dr. Nic Gay (diagnostic vice president [employer]) also participated in this examination. IMPRESSION: Successful vacuum-assisted core needle biopsy of the RIGHT breast. Pathology is pending. ASSESSMENT: Post Procedure Mammograms for Marker Placement Dictated by: Nic Gay MD The radiology attending physician has personally reviewed this study, and had reviewed and/or edited this written report and agrees with it. Electronically signed by: Jeaneth Whaley M.D. 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 Pathology is benign and concordant. Normal interval screening mammography is recommended. Results and recommendations will be discussed with the patient by [facility] or referring provider staff and will be separately documented in the medical record. Electronically signed by: Jeaneth Whaley M.D. Impressions 07/29/2024 11:57 AM CDT Successful vacuum-assisted core needle biopsy of the RIGHT breast. Pathology is pending. ASSESSMENT: Post Procedure Mammograms for Marker Placement Dictated by: Nic Gay MD The radiology attending physician has personally reviewed this study, and had reviewed and/or edited this written report and agrees with it. Electronically signed by: Jeaneth Whaley M.D. Narrative 07/29/2024 11:57 AM CDT EXAMINATION: RIGHT STEREOTACTIC BREAST VACUUM-ASSISTED CORE BIOPSY UTILIZING TOMOSYNTHESIS AND STEREOTACTIC GUIDANCE, PLACEMENT OF A BIOPSY SITE TISSUE MARKER CLIP, AND RIGHT FULL FIELD DIGITAL MAMMOGRAM WITH DIGITAL BREAST TOMOSYNTHESIS HISTORY: Abnormal mammogram. 58-year-old female with screening detected grouped calcifications within the upper outer right breast. Image guided core needle biopsy is requested to evaluate for malignancy. COMPARISON: 07/06/2024, 07/10/2024 BREAST PARENCHYMAL COMPOSITION: The breasts are heterogeneously dense, which may obscure small masses. PROCEDURE AND FINDINGS: The risks and potential benefits of the procedures were discussed with the patient and written informed consent was obtained. After a time-out procedure, the patient was placed in the prone position on the biopsy unit. The area of interest was localized and targeted utilizing digital imaging with tomosynthesis and stereotaxis. After sterile preparation of the skin, 1% lidocaine was utilized for local anesthesia. A small skin incision was made with a #11 scalpel blade and a 9 gauge Brevera vacuum-assisted biopsy needle was advanced to the area of interest from a lateral approach utilizing stereotactic guidance. A total of 3 tissue cores were then obtained; these were submitted to surgical pathology in formalin for histologic analysis. The specimen radiograph demonstrates that the calcifications of interest are included within the tissue cores. A TriMark Hourglass tissue marker clip was placed at the biopsy site. The needle was removed, hemostasis was achieved, and Dermabond was applied. There was no evidence of significant immediate complication. The patient was given verbal as well as written post procedural instructions prior to release from the department. A two-view RIGHT digital mammogram with digital breast tomosynthesis post procedure demonstrates that the tissue marker clip is in the expected position. The attending radiologist, Dr. Jeaneth Whaley M.D., was present throughout the entire procedure. Dr. Nic Gay (diagnostic vice president [employer]) also participated in this examination. Procedure Note Jeaneth Whaley MD - 07/29/2024 EXAMINATION: RIGHT STEREOTACTIC BREAST VACUUM-ASSISTED CORE BIOPSY UTILIZING TOMOSYNTHESIS AND STEREOTACTIC GUIDANCE, PLACEMENT OF A BIOPSY SITE TISSUE MARKER CLIP, AND RIGHT FULL FIELD DIGITAL MAMMOGRAM WITH DIGITAL BREAST TOMOSYNTHESIS HISTORY: Abnormal mammogram. 58-year-old female with screening detected grouped calcifications within the upper outer right breast. Image guided core needle biopsy is requested to evaluate for malignancy. COMPARISON: 07/06/2024, 07/10/2024 BREAST PARENCHYMAL COMPOSITION: The breasts are heterogeneously dense, which may obscure small masses. PROCEDURE AND FINDINGS: The risks and potential benefits of the procedures were discussed with the patient and written informed consent was obtained. After a time-out procedure, the patient was placed in the prone position on the biopsy unit. The area of interest was localized and targeted utilizing digital imaging with tomosynthesis and stereotaxis. After sterile preparation of the skin, 1% lidocaine was utilized for local anesthesia. A small skin incision was made with a #11 scalpel blade and a 9 gauge Brevera vacuum-assisted biopsy needle was advanced to the area of interest from a lateral approach utilizing stereotactic guidance. A total of 3 tissue cores were then obtained; these were submitted to surgical pathology in formalin for histologic analysis. The specimen radiograph demonstrates that the calcifications of interest are included within the tissue cores. A TriMark Hourglass tissue marker clip was placed at the biopsy site. The needle was removed, hemostasis was achieved, and Dermabond was applied. There was no evidence of significant immediate complication. The patient was given verbal as well as written post procedural instructions prior to release from the department. A two-view RIGHT digital mammogram with digital breast tomosynthesis post procedure demonstrates that the tissue marker clip is in the expected position. The attending radiologist, Dr. Jeaneth Whaley M.D., was present throughout the entire procedure. Dr. Nic Gay (diagnostic vice president [employer]) also participated in this examination. IMPRESSION: Successful vacuum-assisted core needle biopsy of the RIGHT breast. Pathology is pending. ASSESSMENT: Post Procedure Mammograms for Marker Placement Dictated by: Nic Gay MD The radiology attending physician has personally reviewed this study, and had reviewed and/or edited this written report and agrees with it. Electronically signed by: Jeaneth Whaley M.D. Alison Landeros SLIP TENDER IMG MAMMO PROCEDURES Ed ited Result - Final * Surgical pathology (07/29/2024 11:24 AM CDT) Tissue (Breast biopsy, needle core) 07/29/2024 11:24 AM CDT Comment:RIGHT breast stereot actic guided biopsy for calcifications birads 4B Narrative PATHOLOGY [facility] - 07/30/2024 11:08 AM CDT EPIC results best viewed via link to PDF [facility] [place] [address] Note to Patients: This report may contain a detailed description of human tissue sent by a health care provider to the laboratory for pathologic evaluation. The content of this report is essential for diagnosis and may provide important critical findings. This information may be unfamiliar to patients to review without a medical professional present. It is advised that the patient review this report in the presence of a health care provider who can answer questions and explain the details. SURGICAL PATHOLOGY REPORT FINAL Patient Name: JOHNSON MILTON Gender: F : 1965 (Age: 58) Address: [address] [place] [address] Hospital #: [id number] Taken:07/29/2024 Received:07/29/2024 Reported: 07/30/2024 Patient Type: [facility] Ancillary Service: UNKNOWN Location: Physician(s): Juan Sunshine M.D. Stacy Selbert, WHNP Diagnosis: Breast, right, calcifications, biopsy - Fibroadenoma with associated microcalcifications - Negative for atypia or carcinoma cyl/07/30/2024 11:08 By this signature, I attest that the above diagnosis is based upon my personal examination of the slides(and/or other material indicated in the diagnosis). Carlos Tellez MD PhD Report Electronically Reviewed and Signed Out By Carlos Tellez MD PhD 07/30/2024 11:08:09 History: The patient is a 58-year-old woman presenting for abnormal mammogram. Operative procedure: Right breast biopsy, BI-RADS 4B. Specimen(s) [facility] for calcifications birads 4B Gross Description: Received in formalin, labeled with the patient s identifiers and right breast stereotactic guided biopsy for calcifications BI- RADS 4B are five yellow and white cores of fibrofatty tissue (2.5-2.7 cm each in length by 0.3 cm in diameter). Cores designated on the jar lid are labeled A1 to A3. Jar 0. Placed in formalin immediately after collection. Total fixation time= 6.5 hours. sxst/07/29/2024 14:34 PA(s): Candis Navas By this signature, I attest that the above diagnosis is based upon my personal examination of the slides(and/or other material). Addenda/Procedures The performance characteristics of some immunohistochemical stains, fluorescence in-situ hybridization tests and immunophenotyping by flow cytometry cited in this report (if any) were determined by the Surgical Pathology and Flow Cytometry Departments at [facility] as part of an ongoing quality assurance project manager program and in compliance with federally mandated regulations drawn from the Clinical Laboratory Improvement Act of 1988 (CLIA '88). Some of these tests rely on the use of analyte specific reagents and are subject to specific labeling requirements by the US Food and Drug Administration. Such diagnostic tests may only be performed in a facility that is certified by the Department of Health and Human Services as a high complexity laboratory under CLIA '88. The FDA has determined that such clearance or approval is not necessary. This test is used for clinical purposes. It should not be regarded as investigational or for research. Nevertheless, federal rules concerning the medical use of analyte specific reagents require that the following disclaimer be attached to the report: This test was developed and its performance characteristics determined by the Surgical Pathology and Flow Cytometry Departments of [facility]. It has not been cleared or approved by the U. S. Food and Drug Administration. IMAGES AND SCANNED DOCUMENTS, IF INCLUDED, ONLY VIEWABLE IN PDF VERSION OF REPORT Alison Landeros NP LAB PATHOLOGY ORDERABLE S Final Result PATHOLOGY [facility] [address] Floor [place], [place] [phone] * Breast Imaging DX Outside Consult (07/22/2024 5:52 PM HAIRSPRING II INSPECTOR) Anatomical Region Laterality Modality Breast N/A Mammography 07/23/2024 10:0 8 AM HAIRSPRING II INSPECTOR Impressions 07/23/2024 1:39 PM HAIRSPRING II INSPECTOR Coarse heterogeneous, grouped calcifications in the upper outer right breast spanning 8 mm are moderately suspicious for malignancy. Stereotactic biopsy of the right breast is recommended. The method of initial detection of finding was 3D screening mammography (Sdbt). OVERALL FINAL ASSESSMENT: SUSPICIOUS. BI-RADS Category 4B: Moderate suspicion for malignancy. RECOMMENDATION: Stereotactic biopsy of the right breast upper outer grouped calcifications is recommended. NOTE: The findings, conclusions and recommendations within this report do not replace the initial findings, conclusions and recommendations made at the facility where the study was performed based upon the imaging and clinical condition at that time. Review of the prior report and correlation with the clinical history are necessary. The provided images may or may not represent the [facility] source data set and thus may contain changes which may lower the sensitivity of the second opinion interpretation. Dictated by: Chaz Brandon M.D. The radiology attending physician has personally reviewed this study, and had reviewed and/or edited this written report and agrees with it. Electronically signed by: Clementine Rome M.D. Narrative 07/23/2024 1:39 PM HAIRSPRING II INSPECTOR EXAMINATION: REVIEW AND INTERPRETATION OF OUTSIDE IMAGING FACILITY PERFORMING OUTSIDE IMAGING: [facility] EXAM(S) REVIEWED: 1. BILATERAL DIAGNOSTIC MAMMOGRAM WITH TOMOSYNTHESIS, 07/10/2024 2. BILATERAL SCREENING MAMMOGRAM WITH TOMOSYNTHESIS, 07/06/2024 DATE OF INTERPRETATION: 07/23/2024 HISTORY: 58-year-old female, evaluation for suspicious calcifications in the right breast noted on screening mammogram.. COMPARISON: Mammogram 05/03/2022, 03/24/2021, 03/22/2020 BREAST PARENCHYMAL COMPOSITION: The breasts are heterogeneously dense, which may obscure small masses. FINDINGS: Bilateral screening mammogram 07/06/2024: Grouped calcifications in the upper outer right breast are suspicious and require additional views. No suspicious abnormality in the left breast to suggest malignancy. Bilateral diagnostic mammogram 07/10/2024: Coarse heterogeneous, grouped calcifications spanning approximately 8 mm in the upper outer right breast have increased in conspicuity since 2021 and are moderately suspicious for malignancy. Procedure Note Clementine Rome MD - 07/23/2024 EXAMINATION: REVIEW AND INTERPRETATION OF OUTSIDE IMAGING FACILITY PERFORMING OUTSIDE IMAGING: [facility] EXAM(S) REVIEWED: 1. BILATERAL DIAGNOSTIC MAMMOGRAM WITH TOMOSYNTHESIS, 07/10/2024 2. BILATERAL SCREENING MAMMOGRAM WITH TOMOSYNTHESIS, 07/06/2024 DATE OF INTERPRETATION: 07/23/2024 HISTORY: 58-year-old female, evaluation for suspicious calcifications in the right breast noted on screening mammogram.. COMPARISON: Mammogram 05/03/2022, 03/24/2021, 03/22/2020 BREAST PARENCHYMAL COMPOSITION: The breasts are heterogeneously dense, which may obscure small masses. FINDINGS: Bilateral screening mammogram 07/06/2024: Grouped calcifications in the upper outer right breast are suspicious and require additional views. No suspicious abnormality in the left breast to suggest malignancy. Bilateral diagnostic mammogram 07/10/2024: Coarse heterogeneous, grouped calcifications spanning approximately 8 mm in the upper outer right breast have increased in conspicuity since 2021 and are moderately suspicious for malignancy. IMPRESSION: Coarse heterogeneous, grouped calcifications in the upper outer right breast spanning 8 mm are moderately suspicious for malignancy. Stereotactic biopsy of the right breast is recommended. The method of initial detection of finding was 3D screening mammography (Sdbt). OVERALL FINAL ASSESSMENT: SUSPICIOUS. BI-RADS Category 4B: Moderate suspicion for malignancy. RECOMMENDATION: Stereotactic biopsy of the right breast upper outer grouped calcifications is recommended. NOTE: The findings, conclusions and recommendations within this report do not replace the initial findings, conclusions and recommendations made at the facility where the study was performed based upon the imaging and clinical condition at that time. Review of the prior report and correlation with the clinical history are necessary. The provided images may or may not represent the [facility] source data set and thus may contain changes which may lower the sensitivity of the second opinion interpretation. Dictated by: Chaz Brandon M.D. The radiology attending physician has personally reviewed this study, and had reviewed and/or edited this written report and agrees with it. Electronically signed by: Clementine Rome M.D. us Alison Landeros NP IMG MAMMO PROCEDURES Fi nal Result * Breast Imaging Diagnostic Outside Reference (07/10/2024 12:00 AM HAIRSPRING II INSPECTOR) Impressions RAD_MAMMO_[facility] - 07/22/2024 3:26 PM HAIRSPRING II INSPECTOR These images are for Reference purposes only and have not been reviewed by [facility] Radiology. There will be no report generated by a [facility] Radiologist. Narrative [facility]MO[facility] - 07/22/2024 3:26 PM HAIRSPRING II INSPECTOR EXAMINATION: Images For Reference Purposes Only us Alison Landeros NP IMG MAMMO PROCEDURES Fi nal Result [facility] * Breast Imaging Screening Outside Reference (07/06/2024 12:00 AM HAIRSPRING II INSPECTOR) Impressions [facility] - 07/22/2024 3:26 PM HAIRSPRING II INSPECTOR These images are for Reference purposes only and have not been reviewed by [facility] Radiology. There will be no report generated by a [facility] Radiologist. Narrative [facility] - 07/22/2024 3:26 PM HAIRSPRING II INSPECTOR EXAMINATION: Images For Reference Purposes Only us Alison Landeros SLIP TENDER IMG MAMMO PROCEDURES Fi nal Result [facility] from Last 3 [address] [facility] Address: [address] [place] [address] [facility] Care Teams Block Setter [place] Relationship Specialty Start Date End Date Elizabeth Jacobson MD [address] [place] [address] PCP - General Internal Medicine 03/08/21
--- OUTSIDE RECORDS SUMMARY | 2024-08-10 17:24 | XMS_ITS | CONTINUITY OF CARE DOCUMENT ---
Author Name lara, lara Address Unknown Organization [facility] Address [address] [place] [address] Phone [phone] Care Team Providers Care Commercial Real Estate Appraiser Name Role Phone Jonatan Scott MD Unavailable [phone] MIKE MARTINEZ MD Unavailable [phone] MIKE MARTINEZ MD Unavailable PROBLEMS Condition Status Date Provider Notes Chest pain-type to be determined active Hermelinda Scott MD HTN essential active Jonatan Scott MD Diabetes mellitus active Jonatan Scott MD Family History Coronary Hear t Disease female < 65: active ? Jonatan Scott MD Family History Coronary Hear t Disease female < 65: active ? Jonatan Scott MD Family History of Sudden Cardiac : active ? Jonatan Scott MD Tobacco abuse active Jonatan Scott MD ENCOUNTERS Date Type Provider Location Encounter Diag nosis - In-person encounter Office Visit [facility] Family History Coron cesilia Heart Disease female < 65:Family History Coronary Heart Disease female < 65:Family History of Sudden Cardiac :Tobacco abuse - In-person encounter Office Visit [facility] Chest pain-type to b e determinedHTN essentialDiabetes mellitus VITAL SIGNS Date Observation Value Provider Body Mass Index (Ratio) 27.41 kg/m2 Jazzmine Scott MD blood pressure, diastolic 68 mm[Hg] Us shimon Scott MD blood pressure, systolic 110 mm[Hg] Hermelinda Scott MD pulse rate 86 /min Jonatan Scott MD respiratory rate E&M 16 /min Jonatan martinez MD weight E&M 175 [lb_av] Jonatan Scott MD oxygen saturation, oximetry 98 % Jonatan Scott MD pulse rate 93 /min Jonatan Scott MD oxygen saturation, oximetry 96 % Jonatan Scott MD respiratory rate E&M 20 /min Jonatan martinez MD weight E&M 176 [lb_av] Jonatan Scott MD height E&M 67 [in_i] Jonatan Scott MD ALLERGIES No Known Drug Allergies HISTORY OF MEDICATION USE Medication Status Instructions Dates Provider Indications Com ments PRILOSEC 20 MG ORAL CAPSULE DELAYED RELEASE active 1 tablet po daily Jonatan Scott MD BUPROPION HCL ER (SMOKING DET) 150 MG ORAL TABLET EXTENDED RELEASE 12 HOUR active Jonatan Scott MD PRAVASTATIN SODIUM 40 MG ORAL TABLET active ONE TAB. DAILY Jonatan Scott MD LISINOPRIL 10 MG ORAL TABLET active ONE TAB. 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 Smoking History: P atient currently smokes every day. P atient has been counseled to quit. 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 Mood and affect are normal. Jonatan Scott MD FAMILY HISTORY Family Member Condition Full Sister Family History of Jordan dden Cardiac : Full Sister Family History Coron cesilia Heart Disease female < 65: Full Sister Family History Coron cesilia Heart Disease female < 65: INSURANCE PROVIDERS Payer name Policy type / Coverage type [place] [employer] [place] [id number] Other [id number] TREATMENT PLAN Date Name Performer :The Patient was ree ncouraged to stop smoking. Jonatan Scott MD :BP 110/68 Her updated medication list for this problem includes: Lisinopril 10 Mg Tabs (Lisinopril) ..... One tab. daily Jonatan Scott MD Jonatan Scott MD : H er updated medication list for this problem includes: Lisinopril 10 Mg Tabs (Lisinopril) ..... One tab. daily Glimepiride 4 Mg Tabs (Glimepiride) ..... 1 tablet bid Metformin Hcl 500 Mg Tabs (Metformin hcl) ..... 1 tablet bid Jonatan Scott MD : H er updated medication list for this problem includes: Lisinopril 10 Mg Tabs (Lisinopril) ..... One tab. daily Jonatan Scott MD : H er updated medication list for this problem includes: Lisinopril 10 Mg Tabs (Lisinopril) ..... One tab. daily i think she has gerd and will try a trial of prilosec and if this works continue this otherwise will check a stress and an echo. Jonatan Scott MD
--- OUTSIDE RECORDS SUMMARY | 2024-08-10 17:24 | XMS_ITS | Clinical Summary ---
Author Organization [facility] Address [address] [place] [address] Care Team Providers Care Equipment Maintenance Supervisor Name Role Phone Jose Llanos MD, Rajneesh S MD Primary Care Provider [phone] Allergies No known active allergies Medications metFORMIN [...] 08/03/2019 Bilateral carotid artery disease 11/25/2017 Diabetes ([facility]) HTN (hypertension) COPD (chronic obstructive pu lmonary disease) ([facility]) Depression Anxiety GERD (gastroesophageal reflux disease) History [...] Start Date Job End Date OT at [employer]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 on file Not on file Not on file Last Filed Vital Signs Vital Sign Reading Time Taken Comments Blood Pressure 116/69 06/29/2021 1:46 PM DISABILITY SERVICES COORDINATOR Pulse 93 06/29/2021 1:46 PM DISABILITY SERVICES COORDINATOR Temperature - - Respiratory Rate 18 06/29/2021 1:46 PM DISABILITY SERVICES COORDINATOR Oxygen Saturation 97% 06/29/2021 1:46 PM DISABILITY SERVICES COORDINATOR Inhaled Oxygen Concentration - - Weight 83.7 kg (184 lb 9.6 oz) 06/29/2021 1:46 P M DISABILITY SERVICES COORDINATOR Height 170.2 cm (5' 7 ) 06/29/2021 1:46 PM DISABILITY SERVICES COORDINATOR Body Mass Index 28.91 06/29/2021 1:46 PM DISABILITY SERVICES COORDINATOR Plan of Treatment Health Maintenance Due Date [...] Most Recently Relevant to Health Maintenance Insurance [facility] Care Teams Equipment Maintenance Supervisor Relationship Specialty Start Date End Date Elizabeth Jacobson MD [address] [place] [address] PCP - General INTERNAL MEDICINE 09/06/20 Jose Llanos MD [employer] Mortgage Loan Officer Originator CARDIOVASCULAR DISEASE 10/16/17
--- OUTSIDE RECORDS SUMMARY | 2024-08-10 17:24 | XMS_ITS | Encounter Summary ---
Author Organization [facility] Healthcare Address [address] [place] [address] Care Team Providers Care Machine Packaging Technician Name Role Phone Unavailable Primary Care Provider Unavailabl e Reason for Visit * Diagnostic Imaging (Routine) - Pending Review Specialty Diagnoses / Procedures Referred By Contjaci t Referred To Contact Procedures Breast Imaging Screening Outside Reference Alison Landeros, IRON [address] [address] Phone: tel: fax: Referral ID Status Reason Start Date Expiration Date V isits Requested Visits Authorized [id number] Pending Review 07/22/2024 08/21/2025 1 1 Encounter Details Date Type Department Care Team (Late st Contact Info) Description 03/22/2020 Hospital Encounter [facility] [address] [place], [place] [id number] Social History Tobacco Use Types Packs/Day Years Used Date Smoking Tobacco: Every Day Cigarettes Comments No Sex and Gender Information Value Date Recorded Sex Assigned at Not on file Legal Sex Female 12:52 AM HEAVY EQUIPMENT SALES MANAGER Gender Identity Not on file Sexual Orientation Not on file documented as of this encounter Plan of Treatment Not on file documented as of this encounter Procedures Procedure Name Priority Date/Time Associated Diagnosis Comments BREAST IMAGING MG SCREENING OUTSIDE REFERENCE Routine 03/22/2020 12:00 AM HEAVY EQUIPMENT SALES MANAGER documented in this encounter Results * Breast Imaging Screening Outside Reference (03/22/2020 12:00 AM HEAVY EQUIPMENT SALES MANAGER) Impressions RAD[facility]MO[facility] - 07/22/2024 3:26 PM HEAVY EQUIPMENT SALES MANAGER These images are for Reference purposes only and have not been reviewed by [facility] Radiology. There will be no report generated by a [facility] Radiologist. Narrative RAD_MAMMO[facility] - 07/22/2024 3:26 PM HEAVY EQUIPMENT SALES MANAGER EXAMINATION: Images For Reference Purposes Only us Alison Landeros NP IMG MAMMO PROCEDURES Fi nal Result [facility] documented in this encounter Visit Diagnoses Not on filedocumented in this encounter
--- OUTSIDE RECORDS SUMMARY | 2024-08-10 17:24 | XMS_ITS | Clinical Summary ---
Author Organization [facility] Address [address] [place] [address] Care Team Providers Care Plater Apprentice Name Role Phone Elizabeth Jacobson MD Primary Care Provider + [phone] Allergies No known active allergies Medications aspirin [...] Date Resolved Date Chest pain 11/09/2013 07/29/2024 Encounters Date Type Department Care Team Description 07/30/2024 Telephone [facility] ([facility]) [address] [place] [phone] Scarlet Alexander RN Test Results (Right breast biopsy path results from 07/29/24) 07/30/2024 Telephone [facility] ([facility]) [address] [place] [phone] Scarlet Alexander RN Test Results (Right breast biopsy path results from 07/29/24) 07/29/2024 11:30 AM CDT - 07/29/2024 11:59 PM CDT Hospital Encounter [facility] ([facility]) [address] [place] [phone] Abnormal mammogram Discharge Disposition: Discharge to home or self care 07/29/2024 10:35 AM CDT - 07/29/2024 11:59 PM CDT Hospital Encounter [facility] ([facility]) [address] [place] [phone] Abnormal mammogram Discharge Disposition: Discharge to home or self care 07/29/2024 8:00 AM CDT Office Visit [facility] [address] [place] [id number] Alison Landeros NP Abnormal mammogram (Primary Dx); Mass of upper outer quadrant of right breast; Heterogeneously dense tissue of both breasts on mammography 07/23/2024 Telephone [facility] ([facility]) [address] [place] [phone] Clarice Gramajo RN 07/23/2024 Orders Only [facility] [address] [place] [address] Alison Landeros NP 07/22/2024 5:51 PM IMPORT COORDINATION AND PRODUCTION HEAD - 07/22/2024 11:59 PM IMPORT COORDINATION AND PRODUCTION HEAD Hospital Encounter [facility] ([facility]) [address] [place] [phone] Calcification of right breast on mammography Discharge Disposition: Discharge to home or self care 07/22/2024 Orders Only [facility] Surgery [address] [place] [address] [address] [place] [address] Alison Landeros NP Calcification of right breast on mammography (Primary Dx) 07/17/2024 Orders Only [facility] Surgery [address] [place] [address] Floor [address] [place] [address] Alison Landeros NP Abnormal mammogram (Primary Dx) 07/10/2024 - 07/10/2024 11:59 PM IMPORT COORDINATION AND PRODUCTION HEAD Hospital Encounter [facility] ([facility]) [address] [place] [phone] Discharge Disposition: Discharge to home or self care 07/06/2024 - 07/06/2024 11:59 PM IMPORT COORDINATION AND PRODUCTION HEAD Hospital Encounter [facility] ([facility]) [address] [place] [phone] Discharge Disposition: Discharge to home or self care from Last 3 Months Surgical History Surgery Date Site/Laterality Comments HYSTERECTOMY 05/20/2009 - 05/19/2010 Fibroids BREAST BIOPSY 07/29/2024 Right Medical History Medical History Date Comments Chest pain 11/09/2013 Family History Medical History Relation Name Comments Bladder Cancer Mother Lung cancer Mother Breast cancer Paternal Grandmother less t bowens 50 yrs old Relation Name Status Comments Mother Paternal Grandmother Social History Tobacco Use Types Packs/Day Years Used Date Smoking Tobacco: Every Day Cigarettes Tobacco Cessation:Ready to Q uit: Not Asked; Counseling Given: Not Answered Comments No Sex and Gender Information Value Date Recorded Sex Assigned at Not on file Legal Sex Female 12:52 AM IMPORT COORDINATION AND PRODUCTION HEAD Gender Identity Not on file Sexual Orientation [...] 07/29/2024 8:00 AM CDT Plan of Treatment Health Maintenance Due Date Last Done Comments Albumin Creatinine Ratio, Urine 1966 Breast Cancer Screening-Mammogram 1966 Colon Cancer Screening-Colonoscopy 1966 Depression Screening 1966 Hemoglobin A1C 1966 Hepatitis C Screening 1966 eGFR 1966 Dilated Eye Exam 1966 Foot Exam 1966 Hepatitis B Screening 1984 Regular Well Visit/Exam 18-64 1984 Lipid Panel 06/10/2020 06/10/2019 DTaP/Tdap/Td Vaccine (2 - Td or Tdap) 07/18/2022 07/18/2012 Covid-19 Vaccine (3 - 2023-2 5 season) 2024 07/12/2020, 05/31/2020 Influenza Vaccine (#1) 2024 01/30/2016, 2014 Pneumococcal vaccine <65 (3 of 3 - PCV20 or PCV21) 06/20/2025 06/20/2020, 02/16/2015, 03/19/2013, Additional history exists Zoster Vaccine Completed 03/18/2020, 12/15/2019 Medical Devices Implanted Type Area Laborer Pipeline Device Identifier Shelf Expiration Date Model / Serial / Lot VANDOLAY [facility] [employer] Rigid End Hourglass Marker Breast Biopsy Titanium [id number] -[id number] - [id number] Implanted:Qty: 1 on 07/29/2024 by Nic Gay MD at [facility] [employer] [id number] 11/03/2025 TRIMARK-EV MOLLY-2S-13 / / [id number] Procedures Procedure Name Priority Date/Time Associated Diagnosis Comments SUMAN POST CLIP PLACEMENT RIGHT Schedule Routine, Read Routine (OP Routine) 07/29/2024 11:40 AM CDT Abnormal mammogram STEREOTACTIC BREAST BIOPSY RIGHT Schedule Routine, Read Routine (OP Routine) 07/29/2024 11:27 AM CDT Abnormal mammogram SURGICAL PATHOLOGY Routine 07/29/2024 11 :24 AM CDT Abnormal mammogram BREAST IMAGING MG DIAGNOSTIC OUTSIDE CONSULT Routine 07/22/2024 5:52 PM IMPORT COORDINATION AND PRODUCTION HEAD Calcification of right breast on mammography BREAST IMAGING MG DIAGNOSTIC OUTSIDE REFERENCE Routine 07/10/2024 12:00 AM IMPORT COORDINATION AND PRODUCTION HEAD Calcification of right breast on mammography BREAST IMAGING MG SCREENING OUTSIDE REFERENCE Routine 07/06/2024 12:00 AM IMPORT COORDINATION AND PRODUCTION HEAD from Last 3 Months Results * Suman [...] be discussed with the patient by [facility] or referring provider staff and will [...] the entire procedure. Dr. Nic Gay (diagnostic fixed income trading vice president) also participated in this examination. Procedure Note [...] the entire procedure. Dr. Nic Gay (diagnostic fixed income trading vice president) also participated in this examination. IMPRESSION: Successful vacuum-assisted core needle biopsy of the RIGHT breast. Pathology is pending. ASSESSMENT: Post Procedure Mammograms for Marker Placement Dictated by: Nic Gay MD The radiology attending physician has personally reviewed this study, and had reviewed and/or edited this written report and agrees with it. Electronically signed by: Jeaneth Whaely M.D. Alison Landeros EXHAUST EQUIPMENT OPERATOR IMG MAMMO PROCEDURES Ed ited Result - [...] be discussed with the patient by [facility] or referring provider staff and will [...] the entire procedure. Dr. Nic Gay (diagnostic fixed income trading vice president) also participated in this examination. Procedure Note [...] the entire procedure. Dr. Nic Gay (diagnostic fixed income trading vice president) also participated in this examination. IMPRESSION: Successful vacuum-assisted core needle biopsy of the RIGHT breast. Pathology is pending. ASSESSMENT: Post Procedure Mammograms for Marker Placement Dictated by: Nic Gay MD The radiology attending physician has personally reviewed this study, and had reviewed and/or edited this written report and agrees with it. Electronically signed by: Jeaneth Whaley M.D. us Alison Landeros EXHAUST EQUIPMENT OPERATOR IMG MAMMO PROCEDURES Ed ited Result - Final * Surgical pathology (07/29/2024 11:24 AM CDT) Tissue (Breast biopsy, needle core) 07/29/2024 11:24 AM CDT Comment:RIGHT breast stereot actic guided biopsy for calcifications birads 4B Narrative PATHOLOGY BJ - 07/30/2024 11:08 AM CDT EPIC results best viewed via link to PDF [facility] [place] [address] Note to Patients: This report may contain [...] Gender: F : 1965 (Age: 58) Address: [address] [place] [address] [facility] #: [id number] Taken:07/29/2024 Received:07/29/2024 Reported: 07/30/2024 Patient Type: [facility] Ancillary Service: UNKNOWN Location: Physician(s): Jeaneth Whaley M.D. Elizabeth Jacobson M.D. DARREN Masterson Diagnosis: Breast, right, calcifications, biopsy - Fibroadenoma [...] breast biopsy, BI-RADS 4B. Specimen(s) Received: A: [facility] breast stereotactic guided biopsy for calcifications birads [...] Surgical Pathology and Flow Cytometry Departments at [facility] as part of an ongoing quality assurance director program and in compliance with federally mandated [...] Surgical Pathology and Flow Cytometry Departments of [facility]. It has not been cleared or approved by the U. S. Food and Drug Administration. IMAGES AND SCANNED DOCUMENTS, IF INCLUDED, ONLY VIEWABLE IN PDF VERSION OF REPORT us Alison Landeros NP LAB PATHOLOGY ORDERABLE S Final Result PATHOLOGY [facility] 3rd Floor [place], [place] [phone] * Breast Imaging DX Outside Consult (07/22/2024 5:52 PM IMPORT COORDINATION AND PRODUCTION HEAD) Anatomical Region Laterality Modality Breast N/A Mammography 07/23/2024 10:0 8 AM IMPORT COORDINATION AND PRODUCTION HEAD Impressions 07/23/2024 1:39 PM IMPORT COORDINATION AND PRODUCTION HEAD Coarse heterogeneous, grouped calcifications in the upper [...] images may or may not represent the [place] source data set and thus may contain changes which may lower the sensitivity of the second opinion interpretation. Dictated by: Chaz Brandon M.D. The radiology attending physician has personally reviewed this study, and had reviewed and/or edited this written report and agrees with it. Electronically signed by: Clementine Rome M.D. Narrative 07/23/2024 1:39 PM IMPORT COORDINATION AND PRODUCTION HEAD EXAMINATION: REVIEW AND INTERPRETATION OF OUTSIDE IMAGING FACILITY PERFORMING OUTSIDE IMAGING: [facility] EXAM(S) REVIEWED: 1. BILATERAL DIAGNOSTIC MAMMOGRAM WITH [...] OF OUTSIDE IMAGING FACILITY PERFORMING OUTSIDE IMAGING: [facility] EXAM(S) REVIEWED: 1. BILATERAL DIAGNOSTIC MAMMOGRAM WITH [...] images may or may not represent the [place] source data set and thus may contain changes which may lower the sensitivity of the second opinion interpretation. Dictated by: Chaz Brandon M.D. The radiology attending physician has personally reviewed this study, and had reviewed and/or edited this written report and agrees with it. Electronically signed by: Clementine Rome M.D. Alison Landeros NP IMG MAMMO PROCEDURES Fi nal Result * Breast Imaging Diagnostic Outside Reference (07/10/2024 12:00 AM IMPORT COORDINATION AND PRODUCTION HEAD) Impressions [facility]_M[facility]MO[facility] - 07/22/2024 3:26 PM IMPORT COORDINATION AND PRODUCTION HEAD These images are for Reference purposes only and have not been reviewed by [facility] Radiology. There will be no report generated by a [facility] Radiologist. Narrative RAD_MAMMO[facility] - 07/22/2024 3:26 PM IMPORT COORDINATION AND PRODUCTION HEAD EXAMINATION: Images For Reference Purposes Only Alison Landeros NP IMG MAMMO PROCEDURES Fi nal Result Performing Organization Address [facility] Co de Phone Number [email or web address] * Breast Imaging Screening Outside Reference (07/06/2024 12:00 AM IMPORT COORDINATION AND PRODUCTION HEAD) Impressions [facility] - 07/22/2024 3:26 PM IMPORT COORDINATION AND PRODUCTION HEAD These images are for Reference purposes only and have not been reviewed by [facility] Radiology. There will be no report generated by a [facility] Radiologist. Narrative [facility]_M[facility]MO[facility] - 07/22/2024 3:26 PM IMPORT COORDINATION AND PRODUCTION HEAD EXAMINATION: Images For Reference Purposes Only Alison Landeros NP IMG MAMMO PROCEDURES Fi nal Result Performing Organization Address [facility] Co de Phone Number RAD_MAMMO[facility] from Last 3 Months Insurance HEALTHCARE PPO HEALTHCARE PPO Care Teams Plater Apprentice Relationship Specialty Start Date End Date Elizabeth Jacobson MD [address] [place] [address] PCP - General Internal Medicine 03/08/21
--- OUTSIDE RECORDS SUMMARY | 2024-08-10 17:24 | XMS_ITS | Continuity of Care Document ---
Author Organization [facility] Address [address] [place] [address] Phone Care Team Providers Care Division Order Technician Name Role Phone Guy Watkins Unavailable Unavailable Procedures Procedure Date Office/outpatient Visit, Est Office/outpatient Visit, Est Office/outpatient Visit, Est Eye Exam, New Patient Advance Directives Directive Yes / No Effective Date File Name No Information Encounters Encounter Description Practice Location Reason(s) For Visit Diagnoses Date Provider Providers Copied on Encounter Office[place]pat [place] [facility] [address] [place] [address] [address], [place], [place], [id number], tel:[phone] [facility] No Information Nov-1 0-200 8 Doisy Edward. [address], [place], [place], [facility], . tel:[phone] Office/outpat ient Visit, [facility] [address], [place], [place], [id number], tel:[phone] [facility] No Information Nov-0 7-200 8 Nunes OD M[address] , [address], [place], [place], [facility], . tel:[phone] Office/outpat ient Visit, [facility] [address] [place] [address] [address], [place], [place], [id number], tel:[phone] [facility] No Information Nov-0 6-200 8 Krishnasamy Andrea. [address], [facility], . tel:[phone] [facility], [address], [place], [place], [id number], tel:[phone] [facility] No Information Nov-0 5-200 8 Krishnasamy Andrea. [address], [facility], . tel:[phone] Referring Provider: Elizabeth Jacobson MD, [address] [place] [address], [address]. tel:[phone] Family History Family Member Type Diagnosis Age At Onset No Information Payers Payer name Insurance type Covered democrat ID [employer] [place] Commercial CI [id number] Social History Type Description Quantity Date Captured [...]
== END 2024-08-10 15:00 | disposition home or self-care (01) ==
LOC: CHSIMG 15:00
PROVIDERS: PCP Internal Medicine; Visit Provider Internal Medicine
DX: Z12.2 Encounter for screening for malignant neoplasm of respiratory organs (principal); Z87.891 Personal history of nicotine dependence
CPT/HCPCS: 71271

== ENCOUNTER 2025-03-05 08:16 | Outpatient (CLI) | payer OTHER, SELFPAY ==
--- OUTSIDE RECORDS SUMMARY | 2008-03-29 03:15 | XMS_ITS | Continuity of Care Document ---
Author Organization [facility] [place] [address] [place] [address] Phone Care Team Providers Care Paleontology Teacher Name Role Phone Guy Watkins Unavailable Unavailable Procedures Procedure Date Office/outpatient Visit, Est Office/outpatient Visit, Est Office/outpatient Visit, Est Eye Exam, New Patient Advance Directives Directive Yes / No Effective Date File Name No Information Encounters Encounter Description Practice Location Reason(s) For Visit Diagnoses Date Provider Providers Copied on Encounter Office/outpat ient Visit, [facility] [place] [facility], [address] [place] [address] [address], [place], [place], [id number], tel:[phone] [facility] No Information Nov-1 0-200 8 Doisy Edward. [address], [place], [place], [facility], . tel:[phone] Office/outpat ient Visit, [facility] [place], [address], [place], [place], [id number], tel:[phone] [facility] No Information Nov-0 7-200 8 Nunes OD Mk. [address] , [address], [place], [place], [facility], . tel:[phone] Office/outpat ient Visit, [facility] [place], [address] [place] [address] [address], [place], [place], [id number], tel:[phone] [facility] No Information Nov-0 6-200 8 Krishnasamy Andrea. [address], [facility], . tel:[phone] [facility], [address], [place], [place], [id number], tel:[phone] [facility] No Information Nov-0 5-200 8 Krishnasamy Andrea. [address], [facility], . tel:[phone] Referring Provider: Elizabeth Jacobson MD, [address] [place] [address], [address]. tel:[phone] Family History Family Member Type Diagnosis Age At Onset No Information Payers Payer name Insurance type Covered democrat ID pantera villa(s) [facility] Commercial CI [id number] Social History Type Description Quantity Date Captured Comments Sex Female Smoking Status No Information Chief Complaint And Reason For Visit No Information Reason For Referral Reason For Referral No Information History Of Present Illness Encounter Date Complaint History Of Prese nt Illness No Information Functional Status Date Functional Assessmen t No Information Instructions Date Instruction Additional Infor mation No Information Assessments Type Assessment Date No Information Patient Care Teams Name Effective Dates (start - stop) Status Members No Information
--- OUTSIDE RECORDS SUMMARY | 2020-03-22 01:00 | XMS_ITS | Encounter Summary ---
Author Organization [facility] Healthcare Address [address] [place] [address] Care Team Providers Care Professional Development Manager Name Role Phone Unavailable Primary Care Provider Unavailabl e Reason for Visit * Diagnostic Imaging (Routine) - Pending Review Specialty Diagnoses / Procedures Referred By Contjaci t Referred To Contact Procedures Breast Imaging Screening Outside Reference Alison Landeros, IRON [address] [address] Phone: tel: fax: Referral ID Status Reason Start Date Expiration Date V isits Requested Visits Authorized [id number] Pending Review 07/22/2024 08/21/2025 1 1 Encounter Details Date Type Department Care Team (Late st Contact Info) Description 03/22/2020 Hospital Encounter [facility]iology [facility] [address] [place], [place] [phone] Social History Tobacco Use Types Packs/Day Years Used Date Smoking Tobacco: Every Day Cigarettes Comments No Sex and Gender Information Value Date Recorded Sex Assigned at Not on file Legal Sex Female 12:52 AM AIRPORT ENGINEER Gender Identity Not on file Sexual Orientation Not on file documented as of this encounter Plan of Treatment Not on file documented as of this encounter Procedures Procedure Name Priority Date/Time Associated Diagnosis Comments BREAST IMAGING MG SCREENING OUTSIDE REFERENCE Routine 03/22/2020 12:00 AM AIRPORT ENGINEER documented in this encounter Results * Breast Imaging Screening Outside Reference (03/22/2020 12:00 AM AIRPORT ENGINEER) Impressions RAD[facility]MO[facility] - 07/22/2024 3:26 PM AIRPORT ENGINEER These images are for Reference purposes only and have not been reviewed by [facility] Radiology. There will be no report generated by a [facility] Radiologist. Narrative RAD_MAMMO_[facility] - 07/22/2024 3:26 PM AIRPORT ENGINEER EXAMINATION: Images For Reference Purposes Only us Alison Landeros NP IMG MAMMO PROCEDURES Fi nal Result RAD_MAMMO_[facility] documented in this encounter Visit Diagnoses Not on filedocumented in this encounter
--- NOTE | ~2025-03-05 | US_ITS ---
US right upper quadrant Indication: ELEVATED LIVER ENZYMES Comparison: None Technique: Link-scale and color Doppler images were obtained. Findings: LIVER: Unremarkable, liver contours intact, no lesions. Normal echogenicity. . GALLBLADDER/BILIARY: Minimal cholelithiasis, no wall thickening, no pericholecystic fluid. CBD 4 mm. [place] sign negative. PANCREAS: Pancreas limited by bowel gas. Right Kidney: The right kidney was not imaged. Impression: Cholelithiasis Reviewed, dictated and finalized at location P. Impression: Cholelithiasis
--- OUTSIDE RECORDS SUMMARY | 2025-03-05 08:27 | XMS_ITS | Clinical Summary ---
Author Organization [facility] Address [address] [place] [address] Care Team Providers Care Electrical Equipment Assembler Name Role Phone Elizabeth Jacobson MD Primary Care Provider [phone] Allergies No known active allergies Medications aspirin [...] 04/2025 Depression 07/29/2024 GERD (gastroesophageal reflux disease) Bilateral sciatica 11/05/2022 Stenosis of left subclavian artery 07/29/2021 Hyperlipidemia 08/03/2019 Bilateral carotid artery disease 11/25/2017 Tobacco dependence syndrome 02/01/2014 Diabetes mellitus 11/09/2013 Primary hypertension 11/09/2013 Resolved Problems Problem Noted Date Diagnosed Date Resolved Date Chest pain 11/09/2013 07/29/2024 Surgical History Surgery Date Site/Laterality Comments HYSTERECTOMY [...] on file Legal Sex Female 12:52 AM SPRING BENDER Gender Identity Not on file Sexual Orientation [...] A M CDT Height 169 cm (5' 6.54) 07/29/2024 8:00 AM CDT Body Mass Index [...] Tdap) 07/18/2022 07/18/2012 Covid-19 Vaccine (3 - 2024-2 6 season) 2025 07/12/2020, 05/31/2020 Influenza Vaccine (#1) 2025 01/30/2016, 2014 Pneumococcal vaccine <65 (3 of 3 - PCV20 or PCV21) 06/20/2025 06/20/2020, 02/16/2015, 03/19/2013, Additional history exists Zoster Vaccine Completed 03/18/2020, 12/15/2019 Medical Devices Implanted Type Area Collection Systems Modeler Device Identifier Shelf Expiration Date Model / Serial / Lot [employer] Rigid End Hourglass Marker Breast Biopsy Titanium [id number] -13 - [id number] Implanted:Qty: 1 on 07/29/2024 by Nic Gay MD at [facility] [employer] [id number] 11/03/2025 TRIMARK-EV MOLLY-2S-13 / / [id number] Insurance [employer] PPO BLUE ACCESS [facility] PPO Care Teams Electrical Equipment Assembler Relationship Specialty Start Date End Date Elizabeth Jacobson MD [address] [place] [address] PCP - General Internal Medicine 03/08/21
== END 2025-03-05 08:17 | disposition home or self-care (01) ==
LOC: CHSIMG 08:18
PROVIDERS: PCP Internal Medicine; Visit Provider Internal Medicine
DX: R41.3 Other amnesia (principal); R42 Dizziness and giddiness; R51.9 Headache, unspecified; R74.01 Elevation of levels of liver transaminase levels; K80.20 Calculus of gallbladder without cholecystitis without obstruction
CPT/HCPCS: 76705

== ENCOUNTER 2025-03-09 14:27 | Outpatient (CLI) | payer OTHER, SELFPAY ==
--- OUTSIDE RECORDS SUMMARY | 2020-03-22 01:00 | XMS_ITS | Encounter Summary ---
Author Organization [facility] Healthcare Address [address] [place] [address] Care Team Providers Care Linux Developer Name Role Phone Unavailable Primary Care Provider Unavailabl e Reason for Visit * Diagnostic Imaging (Routine) - Pending Review Specialty Diagnoses / Procedures Referred By Contjaci t Referred To Contact Procedures Breast Imaging Screening Outside Reference Alison Landeros, IRON [address] [address] Phone: tel: fax: Referral ID Status Reason Start Date Expiration Date V isits Requested Visits Authorized [id number] Pending Review 07/22/2024 08/21/2025 1 1 Encounter Details Date Type Department Care Team (Late st Contact Info) Description 03/22/2020 Hospital Encounter [facility] [address] [place], [place] [id number] Social History Tobacco Use Types Packs/Day Years Used Date Smoking Tobacco: Every Day Cigarettes Comments No Sex and Gender Information Value Date Recorded Sex Assigned at Not on file Legal Sex Female 12:52 AM CANDY MAKER Gender Identity Not on file Sexual Orientation Not on file documented as of this encounter Plan of Treatment Not on file documented as of this encounter Procedures Procedure Name Priority Date/Time Associated Diagnosis Comments BREAST IMAGING MG SCREENING OUTSIDE REFERENCE Routine 03/22/2020 12:00 AM CANDY MAKER documented in this encounter Results * Breast Imaging Screening Outside Reference (03/22/2020 12:00 AM CANDY MAKER) Impressions RAD_MAMMO_[facility] - 07/22/2024 3:26 PM CANDY MAKER These images are for Reference purposes only and have not been reviewed by [facility] Radiology. There will be no report generated by a [facility] Radiologist. Narrative RAD_MAMMO_[facility] - 07/22/2024 3:26 PM CANDY MAKER EXAMINATION: Images For Reference Purposes Only us Alison Landeros NP IMG MAMMO PROCEDURES Fi nal Result RAD_MAMMO_[facility] documented in this encounter Visit Diagnoses Not on filedocumented in this encounter
--- NOTE | ~2025-03-09 | US_ITS ---
EXAMINATION: US carotid duplex BI DATE: 03/09/2025 14:51 INDICATION: Follow-up carotid stenosis TECHNIQUE: Grayscale, color Doppler, and pulsed Doppler images of the cervical carotid arteries were obtained. The degree of vessel stenosis is placed in one of the following categories: normal, <50%, 50-69%, >=70% but less than near- occlusion, near-occlusion, or total occlusion. Note that percent stenosis relative to normal distal artery lumen diameter is indirectly measured from velocity measurements as described by Nic, et al. Radiology 2003; 229:340-346. Notes: Normal: Peak systolic velocity <125 centimeters/sec and no plaque <50%. Peak systolic velocity <125 (EDV <40; ICA/CCA PSV ratio <2.0; used these factors only a tandem lesions or low cardiac output or contralateral disease) 50-69 %: PSV 125-230 (EDV 40-100; ratio 2-4) >= 70% but less than near occlusion: PSV greater than 230 (EDV > 100; ratio> 4.0) Near Occlusion: PSV that is variable; markedly narrowed lumen Occlusion: Absent flow on color/spectral Doppler and no lumen on howell scale. COMPARISON: None. FINDINGS: RIGHT: The right common carotid artery (CCA) peak systolic velocity (PSV) is 82 cm/s. The right internal carotid artery (ICA) PSV is 78 cm/s. The right ICA end- diastolic velocity (EDV) is 35 cm/s. The right ICA/CCA PSV ratio is 0.95. The external carotid artery (ECA) PSV is 56 cm/s. There is antegrade flow in the right vertebral artery. LEFT: The left CCA PSV is 72 cm/s. The left ICA PSV is 89 cm/s. The left ICA EDV is 40 cm/s. The left ICA/CCA PSV ratio is 1.2. The ECA PSV is 62 cm/s. There is antegrade flow in the left vertebral artery. IMPRESSION: 1. Less than 50% stenosis in the right internal carotid artery by sonographic criteria. 2. Less than 50% stenosis in the left internal carotid artery by sonographic criteria. Reviewed, dictated and finalized at location O. IMPRESSION: 1. Less than 50% stenosis in the right internal carotid artery by sonographic shauna sawant. 2. Less than 50% stenosis in the left internal carotid artery by sonographic joseph marlow.
--- OUTSIDE RECORDS SUMMARY | 2025-03-09 18:24 | XMS_ITS | Clinical Summary ---
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 Not on file Not on file Last Filed Vital Signs Vital Sign Reading Time Taken Comments Blood Pressure 116/69 06/29/2021 1:46 PM PURCHASING DEPARTMENT CLERK Pulse 93 06/29/2021 1:46 PM PURCHASING DEPARTMENT CLERK Temperature - - Respiratory Rate 18 06/29/2021 1:46 PM PURCHASING DEPARTMENT CLERK Oxygen Saturation 97% 06/29/2021 1:46 PM PURCHASING DEPARTMENT CLERK Inhaled Oxygen Concentration - - Weight 83.7 kg (184 lb 9.6 oz) 06/29/2021 1:46 P M PURCHASING DEPARTMENT CLERK Height 170.2 cm (5' 7) 06/29/2021 1:46 PM PURCHASING DEPARTMENT CLERK Body Mass Index 28.91 06/29/2021 1:46 PM PURCHASING DEPARTMENT CLERK Plan of Treatment Health Maintenance Due Date Last Done Comments ASCVD Statin 1966 Colorectal Cancer Screening Colonoscopy (10 Years) 1966 Kidney Health Evaluation 1966 Annual Physical 1969 Diabetes: Retinopathy Eye Exam 1984 Hepatitis C 1984 DTaP, Tdap and Td Vaccines ( 1 - Tdap) 1985 Hepatitis B Vaccines (1 of 3 - 19+ 3-dose series) 1985 Mammogram Screening 2006 Pneumococcal Vaccine: 50+ Years (2 of 2 - PPSV23, PCV20, or PCV21) 04/13/2015 02/16/2015 Hemoglobin A1C 12/09/2019 06/10/2019 Zoster Vaccines (2 of 2) 02/09/2020 12/15/2019 ASCVD LDL 06/10/2020 06/10/2019, 10/28/2017 Lipid Panel 06/10/2020 06/10/2019 COVID-19 Vaccine (2024-2 6 season) 2025 Influenza Adult (#1) 2025 Hepatitis A Vaccines Aged Out No long er eligible based on patient's age to complete this topic Meningococcal B Vaccine Aged Out No l [...] Most Recently Relevant to Health Maintenance Insurance [facility] Care Teams Profile Grinder Relationship Specialty Start Date End Date Elizabeth Jacobson MD [address] [place] [address] PCP - General INTERNAL MEDICINE 09/06/20 Jose Llanos MD [address] [place] [address] [employer] Creative Writer CARDIOVASCULAR DISEASE 10/16/17
--- OUTSIDE RECORDS SUMMARY | 2025-03-09 18:24 | XMS_ITS | Clinical Summary ---
Author Organization [facility] Address [address] [place] [address] Care Team Providers Care Gravel Hauler Name Role Phone Elizabeth Jacobson MD Primary Care Provider [phone] Allergies No known active allergies Medications aspirin [...] on file Legal Sex Female 12:52 AM RCIS Gender Identity Not on file Sexual Orientation [...] 03/18/2020, 12/15/2019 Medical Devices Implanted Type Area Coremaker Pipe Device Identifier Shelf Expiration Date Model / Serial / Lot [employer] Hubba Rigid End Hourglass Marker Breast Biopsy Titanium [id number]-[id number] -13 - [id number] Implanted:Qty: 1 on 07/29/2024 by Nic Gay MD at [facility] [employer] [id number] 11/03/2025 TRIMARK-EV MOLLY-2S-13 / / [id number] Insurance [employer] PPO BLUE ACCESS [place] [facility] PPO Care Teams Gravel Hauler Relationship Specialty Start Date End Date Elizabeth Jacobson MD [address] [place] [address] PCP - General Internal Medicine 03/08/21
== END 2025-03-09 14:28 | disposition home or self-care (01) ==
PROVIDERS: PCP Internal Medicine; Visit Provider Internal Medicine
DX: I65.23 Occlusion and stenosis of bilateral carotid arteries (principal)
CPT/HCPCS: 93880

== ENCOUNTER 2025-03-13 11:36 | Outpatient (CLI) | payer OTHER, SELFPAY ==
--- NOTE | ~2025-03-13 | MR_ITS ---
EXAMINATION: MR brain/brain stem wo con DATE: 03/13/2025 12:33 INDICATION: Unsteady gait. TECHNIQUE: Magnetic resonance imaging (MRI) of the brain and brainstem was performed without intravenous contrast. COMPARISON: Brain MRI 01/28/2021 FINDINGS: There are scattered areas of nonspecific increased T2-weighted signal intensity in the cerebral white matter and zaynab. There are dystrophic calcifications in the bilateral basal ganglia and posterior thalami. There is no intracranial hemorrhage, acute infarction, or abnormal intracranial mass lesion. The ventricles are normal in size. There is a mucous retention cyst in left maxillary sinus. There is mild mucosal thickening in the ethmoid sinuses. The orbits are normal. The mastoid air cells are normal. IMPRESSION: 1. Mild nonspecific cerebral white matter disease with mild interval worsening, which likely represents chronic small vessel ischemic disease. 2. Stable distribution of dystrophic calcifications involving the bilateral basal ganglia and posterior aspects of the thalami. The differential diagnosis includes Fahr disease, old anoxic event, and endocrine disorders. Reviewed, dictated and finalized at location E. IMPRESSION: 1. Mild nonspecific cerebral white matter disease with mild interval worsening, which likely represents chronic small vessel ischemic disease. 2. Stable distribution of dystrophic calcifications involving the bilateral bas al ganglia and posterior aspects of the thalami. The differential diagnosis inc ludes Fahr disease, old anoxic event, and endocrine disorders.
== END 2025-03-13 11:37 | disposition home or self-care (01) ==
LOC: CHSIMG 11:37
PROVIDERS: PCP Internal Medicine; Visit Provider Internal Medicine
DX: R41.3 Other amnesia (principal); R42 Dizziness and giddiness; R51.9 Headache, unspecified; R74.01 Elevation of levels of liver transaminase levels; R90.82 White matter disease, unspecified
CPT/HCPCS: 70551